=== PATIENT | female | born 1985 | race Caucasian/White ===

== ENCOUNTER 2016-08-12 09:49 | Emergency (ER) | payer OTHER ==
[2016-08-12 09:59] VITALS: TEMP 97.5
--- NOTE | 2016-08-12 11:15 | ED ---
ENT HPI - General Chief complaint: ENT Stated complaint: [place], cough Time Seen by Provider: 08/12/16 10:29 Source: patient, RN notes reviewed Mode of arrival: ambulatory Limitations: no limitations - History of Present Illness Initial comments: 30-year-old female presents emergency Department chief complaint facial pain. Patient states she's been having ongoing issues related to her wisdom teeth, impacted dentition. Patient is seen Dr. Fisher for this and which she currently is not going him ice for the last 6 days. Patient states she cannot have surgery as she had an [place] a few months ago. Patient states that she can have surgery in October. Patient also has factor V in which she is on heparin. She's had no bleeding of the gums or or region. Patient denies any melena. Patient' s states that she is has ALLERGY to codeine and states the pain is not controlled [id number] medication. Patient states recently she's developed slight cough and irritation to her throat that she has no shortness of breath she states is just a dry cough. Patient states she feels swelling in the left lower region, throat region that radiates up to her ear. She has had minimal runny nose. Patient denies headache, neck since. Patient has no chest pain or palpitations. - Related Data Home Medications Medication Instructions Recorded Confirmed Clindamycin HCl 300 mg PO Q12HR PRN 08/12/16 08/12/16 Heparin Sodium,Porcine [Heparin 5,000 unit SQ Q12H 08/12/16 08/12/16 Sodium] Previous Rx's Medication Instructions Recorded CHLORPHEN-HYDROcod 8-10mg/5ml 5 ml PO Q12HR #120 ml 08/12/16 [Tussionex] Clindamycin HCl 300 mg PO Q6HR #40 cap 08/12/16 Allergies Allergy/AdvReac Type Severity Reaction Status Date / Time Penicillins Allergy Swelling Verified 08/12/16 10:09 codeine AdvReac Vomiting Verified 08/12/16 10:09 Review of Systems ROS Statement: Those systems with pertinent positive or pertinent negative responses have been documented in the HPI. ROS Other: All systems not noted in ROS Statement are negative. Past Medical History Past Medical History: Deep Vein Thrombosis (DVT) Additional Past Medical History / Comment(s): factor V, endometriosis History of Any Multi-Drug Resistant Organisms: None Reported Past Surgical History: Cholecystectomy, Tonsillectomy, Tubal Ligation Additional Past Surgical History / Comment(s): laprascopy, eye surgery Past Anesthesia/Blood Transfusion Reactions: Postoperative Nausea & Vomiting ( PONV) Past Psychological History: No Psychological Hx Reported Smoking Status: Never smoker Past Alcohol Use History: Occasional Past Drug Use History: None Reported - Past Family History Father Family Medical History: Myocardial Infarction ([place]) Additional Family Medical History / Comment(s): father had first [place] at age 41 Mother Family Medical History: No Reported History Daughter(s) Family Medical History: Blood Disorder Additional Family Medical History / Comment(s): factor v General Exam Limitations: no limitations General appearance: alert, in no apparent distress Head exam: Present: atraumatic, normocephalic, normal inspection Eye exam: Present: normal appearance, PERRL, EOMI. Absent: scleral icterus, conjunctival injection, periorbital swelling ENT exam: Present: mucous membranes moist, TM's normal bilaterally, normal external ear exam. Absent: normal oropharynx (Erythema, swelling noted to the left lower gumline around #17,18 patient is swallowing secretions well) Neck exam: Present: normal inspection, full ROM. Absent: tenderness, meningismus, lymphadenopathy Respiratory exam: Present: normal lung sounds bilaterally. Absent: respiratory distress, wheezes, rales, rhonchi, stridor Cardiovascular Exam: Present: regular rate, normal rhythm, normal heart sounds. Absent: systolic murmur, diastolic murmur, rubs, gallop, clicks Neurological exam: Present: alert, oriented X3, CN II-XII intact Course Vital Signs 08/12/16 09:55 Temperature 97.5 F L Pulse Rate 94 Respiratory 20 Rate Blood Pressure 131/93 O2 Sat by Pulse 99 Oximetry Medical Decision Making - Medical Decision Making 30-year-old female presented for left sided dental pain, cough. Patient has slightly abscess noted on her molar in which the known about. Patient afebrile has no trismus. We discussed admission versus oral antibiotics. Patient we continued on clindamycin 4 times a day instead of 3 times a day. She'll follow- up with Dr. Fisher this week. We did discuss strict return parameters. Patient we given cough syrup at this time. Patient has URI. Disposition Clinical Impression: Dental abscess, URI (upper respiratory infection) Disposition: HOME SELF-CARE Condition: Stable Instructions: Dental Abscess (ED) Additional Instructions: Please return to the Emergency Department if symptoms worsen or any other concerns. Prescriptions: CHLORPHEN-HYDROcod 8-10mg/5ml [Tussionex] 5 ml PO Q12HR #120 ml Clindamycin HCl 300 mg PO Q6HR #40 cap Time of Disposition: 11:34
--- NOTE | 2016-08-12 11:20 | XR ---
EXAMINATION TYPE: XR mandible complete DATE OF EXAM: 08/12/2016 11:07 AM COMPARISON: NONE HISTORY: 30-year-old female left side jaw pain, unable to fully open mouth. TECHNIQUE: 5 views FINDINGS: The TMJs appear intact. The most posterior left mandibular molar is slightly impacted and shows periapical lucency, image #2. The right posterior mandibular molar is also impacted but shows no area of apical lucency. No mandibular fracture is identified. IMPRESSION: 1. Angulated and slightly impacted bilateral posterior mandibular molars. 2. Periapical lucency/abscess involving the left posterior mandibular molar. 3. TMJs appear intact. No acute osseous abnormality seen by radiographs.
--- NOTE | 2016-08-12 11:22 | XR ---
EXAMINATION TYPE: XR soft tissue neck DATE OF EXAM: 08/12/2016 11:07 AM COMPARISON: NONE HISTORY: 30-year-old female shortness of breath and cold symptoms TECHNIQUE: 2 views FINDINGS: The airway is patent. Prevertebral soft tissues are normal as is the epiglottis. Normal shouldering o f the subglottic airway. No retained radiopaque foreign body seen. There is mild hypertrophy of the p alatine tonsils. IMPRESSION: Mild palatine tonsillar hypertrophy. Otherwise, no specific abnormality of the soft tissues of the ne ck.
[2016-08-12 11:46] VITALS: BP 157/84; PULSE 75; RESP 16
== END 2016-08-12 11:46 | disposition home or self-care (01) ==
LOC: EC 09:49
DX: K04.7 Periapical abscess without sinus (principal); J06.9 Acute upper respiratory infection, unspecified; I25.2 Old myocardial infarction; Z86.718 Personal history of other venous thrombosis and embolism; Z79.899 Other long term (current) drug therapy; Z88.0 Allergy status to penicillin; Z88.5 Allergy status to narcotic agent
CPT/HCPCS: 70110; 70360; 99283

== ENCOUNTER 2016-09-15 22:39 | Emergency (ER) | payer OTHER ==
[2016-09-15 23:01] VITALS: TEMP 97.5
[2016-09-15] MEDS ORDERED: SODIUM CHLORIDE 0.9% 500 ML IV STA (23:16)
[2016-09-15 23:44] LABS: Basophils # (A) 0.1 k/uL (0-0.2); Basophils % (A) 0 %; CH 29.6; CHCM 33.2; Eosinophils # (A) 0.3 k/uL (0-0.7); Eosinophils % (A) 3 %; HDW 2.66; HGB 14.2 gm/dL (11.4-16.0); Luc # (Auto) 0.21; Luc % (Auto) 2; Lymphocytes # (A) 4.2 k/uL (1.0-4.8); Lymphocytes % (A) 38 %; MCH 29.6 pg (25.0-35.0); MCV 89.7 fL (80.0-100.0); Mean Platelet Volume 7.6; Monocytes # (A) 0.4 k/uL (0-1.0); Monocytes % (A) 4 %; Neutrophils # (A) 5.8 k/uL (1.3-7.7); Neutrophils % (A) 53 %; RDW 13.4 % (11.5-15.5); WBC 10.9 k/uL (3.8-10.6); WBC (Perox) 11.43
--- NOTE | 2016-09-15 23:46 | ED ---
Abdominal Pain HPI - General Chief Complaint: Abdominal Pain Stated Complaint: bleeding Time Seen by Provider: 09/15/16 23:03 Source: patient, RN notes reviewed Mode of arrival: ambulatory Limitations: no limitations - History of Present Illness Initial Comments: 30-year-old female presents to the emergency department with a chief complaint of abdominal. Patient states that she has had a tubal ligation. Patient states positive test. Patient states that she developed abdominal pain over the last day or so. Patient states he goes into that. Patient states she's had nausea vomiting with this. Patient admits to vaginal bleeding is well. Patient does admit to a history of factor V. Patient is a . Patient states that she was concerned due to the pain affect. Too long the vaginal bleeding that she thought that she should be evaluated. Patient denies any fever chills cough cold runny nose with this. Patient denies any recent fever, chills, shortness of breath, chest pain, back pain, numbness or tingling , dysuria or hematuria, constipation or diarrhea, headaches or visual changes, or any other current symptoms. - Related Data Home Medications Medication Instructions Recorded Confirmed Heparin Sodium,Porcine [Heparin 5,000 unit SQ Q12H 08/12/16 09/15/16 Sodium] Allergies Allergy/AdvReac Type Severity Reaction Status Date / Time Penicillins Allergy Swelling Verified 09/15/16 23:08 codeine AdvReac Vomiting Verified 09/15/16 23:08 Review of Systems ROS Statement: Those systems with pertinent positive or pertinent negative responses have been documented in the HPI. ROS Other: All systems not noted in ROS Statement are negative. Past Medical History Past Medical History: Deep Vein Thrombosis (DVT) Additional Past Medical History / Comment(s): factor V, endometriosis History of Any Multi-Drug Resistant Organisms: None Reported Past Surgical History: Cholecystectomy, Tonsillectomy, Tubal Ligation Additional Past Surgical History / Comment(s): laprascopy, eye surgery Past Anesthesia/Blood Transfusion Reactions: Postoperative Nausea & Vomiting ( PONV) Past Psychological History: No Psychological Hx Reported Smoking Status: Never smoker Past Alcohol Use History: Occasional Past Drug Use History: None Reported - Past Family History Father Family Medical History: Myocardial Infarction ([place]) Additional Family Medical History / Comment(s): father had first [place] at age 41 Mother Family Medical History: No Reported History Daughter(s) Family Medical History: Blood Disorder Additional Family Medical History / Comment(s): factor v General Exam - General Exam Comments Initial Comments: General: The patient is awake and alert, in no distress, and does not appear acutely ill. Eye: Pupils are equal, round and reactive to light, extra-ocular movements are intact; there is normal conjunctiva bilaterally. No signs of icterus. Ears, nose, mouth and throat: There are moist mucous membranes. Neck: The neck is supple, there is no tenderness. Cardiovascular: There is a regular rate and rhythm. No murmur, rub or gallop is appreciated. Respiratory: Lungs are clear to auscultation, respirations are non-labored, breath sounds are equal. No wheezes, stridor, rales, or rhonchi. Gastrointestinal: Soft, non-distended, non-tender abdomen without masses or organomegaly noted. There is no rebound or guarding present. No CVA tenderness. Bowel sounds are unremarkable. Back: There is no tenderness to palpation in the midline. There is no obvious deformity. No rashes noted. Musculoskeletal: Normal ROM, no tenderness, There is no pedal edema. There is no calf tenderness or swelling. Sensation intact. Pulses equal bilaterally 2+. Neurological: CN II-XII intact, There are no obvious motor or sensory deficits. Coordination appears grossly intact. Speech is normal. Skin: Skin is warm and dry and no rashes or lesions are noted. Psychiatric: Cooperative, appropriate mood & affect, normal judgment. Limitations: no limitations External exam: Present: normal external exam Speculum exam: Present: normal speculum exam By manual exam: Present: adnexal tenderness (Minimal right sided), uterine tenderness (Minimal). Absent: cervical motion tenderness Course Vital Signs 09/15/16 22:57 Temperature 97.5 F L Pulse Rate 58 L Respiratory 18 Rate Blood Pressure 143/93 O2 Sat by Pulse 99 Oximetry Medical Decision Making - Medical Decision Making 30-year-old female presents emergency Department chief complaint of abdominal pain. At this time patient's level is negative. Patient does appear to have a right ovarian cyst where her tenderness is. This time we discussed is mostly causing her pain. We discussed she does also appear to have abnormal chest cycle. We discussed follow-up with PATIENT APPOINTMENT COORDINATOR and return parameters. Discussed all the patient's questions. She stated that she is interested in doing in agreement with plan. All questions have been answered. She will be discharged. - Lab Data Result diagrams: 09/15/16 23:30 09/15/16 23:30 Lab Results 09/15/16 09/15/16 09/15/16 Range/Units 23:30 23:30 23:30 WBC 10.9 H (3.8-10.6) k/uL RBC 4.80 (3.80-5.40) m/uL Hgb 14.2 (11.4-16.0) gm/dL Hct 43.0 (34.0-46.0) % MCV 89.7 (80.0-100.0) fL MCH 29.6 (25.0-35.0) pg MCHC 33.0 (31.0-37.0) g/dL RDW 13.4 (11.5-15.5) % Plt Count 280 (150-450) k/uL Neutrophils % 53 % Lymphocytes % 38 % Monocytes % 4 % Eosinophils % 3 % Basophils % 0 % Neutrophils # 5.8 (1.3-7.7) k/uL Lymphocytes # 4.2 (1.0-4.8) k/uL Monocytes # 0.4 (0-1.0) k/uL Eosinophils # 0.3 (0-0.7) k/uL Basophils # 0.1 (0-0.2) k/uL PT (9.0-12.0) sec INR (<1.1) APTT (22.0-30.0) sec Sodium 141 (137-145) mmol/L Potassium 3.9 (3.5-5.1) mmol/L Chloride 108 H (98-107) mmol/L Carbon Dioxide 23 (22-30) mmol/L Anion Gap 10 mmol/L BUN 18 H (7-17) mg/dL Creatinine 0.70 (0.52-1.04) mg/dL Est GFR (MDRD) Af Amer >60 (>60 ml/min/1.73 sqM) Est GFR (MDRD) Non-Af >60 (>60 ml/min/1.73 sqM) Glucose 88 (74-99) mg/dL Calcium 9.9 (8.4-10.2) mg/dL Total Bilirubin 0.9 (0.2-1.3) mg/dL AST 30 (14-36) U/L ALT 42 (9-52) U/L Alkaline Phosphatase 82 (38-126) U/L Total Protein 7.5 (6.3-8.2) g/dL Albumin 4.3 (3.5-5.0) g/dL HCG, Quant <2.4 mIU/mL Urine Color Urine Appearance (Clear) Urine pH (5.0-8.0) Ur Specific [place] (1.001-1.035) Urine Protein (Negative) Urine Glucose (UA) (Negative) Urine Ketones (Negative) Urine Blood (Negative) Urine Nitrite (Negative) Urine Bilirubin (Negative) Urine Urobilinogen (<2.0) mg/dL Ur Leukocyte Esterase (Negative) Blood Type AB Positive Blood Type Recheck No 09/15/16 09/15/16 Range/Units 23:30 23:30 WBC (3.8-10.6) k/uL RBC (3.80-5.40) m/uL Hgb (11.4-16.0) gm/dL Hct (34.0-46.0) % MCV (80.0-100.0) fL MCH (25.0-35.0) pg MCHC (31.0-37.0) g/dL RDW (11.5-15.5) % Plt Count (150-450) k/uL Neutrophils % % Lymphocytes % % Monocytes % % Eosinophils % % Basophils % % Neutrophils # (1.3-7.7) k/uL Lymphocytes # (1.0-4.8) k/uL Monocytes # (0-1.0) k/uL Eosinophils # (0-0.7) k/uL Basophils # (0-0.2) k/uL PT 10.5 (9.0-12.0) sec INR 1.0 (<1.1) APTT 25.4 (22.0-30.0) sec Sodium (137-145) mmol/L Potassium (3.5-5.1) mmol/L Chloride (98-107) mmol/L Carbon Dioxide (22-30) mmol/L Anion Gap mmol/L BUN (7-17) mg/dL Creatinine (0.52-1.04) mg/dL Est GFR (MDRD) Af Amer (>60 ml/min/1.73 sqM) Est GFR (MDRD) Non-Af (>60 ml/min/1.73 sqM) Glucose (74-99) mg/dL Calcium (8.4-10.2) mg/dL Total Bilirubin (0.2-1.3) mg/dL AST (14-36) U/L ALT (9-52) U/L Alkaline Phosphatase (38-126) U/L Total Protein (6.3-8.2) g/dL Albumin (3.5-5.0) g/dL HCG, Quant mIU/mL Urine Color Yellow Urine Appearance Clear (Clear) Urine pH 5.5 (5.0-8.0) Ur Specific [place] 1.020 (1.001-1.035) Urine Protein Negative (Negative) Urine Glucose (UA) Negative (Negative) Urine Ketones Negative (Negative) Urine Blood Negative (Negative) Urine Nitrite Negative (Negative) Urine Bilirubin Negative (Negative) Urine Urobilinogen <2.0 (<2.0) mg/dL Ur Leukocyte Esterase Negative (Negative) Blood Type Blood Type Recheck - Radiology Data Radiology results: report reviewed, image reviewed Disposition Clinical Impression: Right ovarian cyst, Dysmenorrhea Disposition: HOME SELF-CARE Condition: Stable Instructions: Dysmenorrhea (ED) Additional Instructions: Please use medication as discussed. Please follow up with family doctor if symptoms have not improved over the next two days. Please return to the emergency room if your symptoms increase or worsen or for any other concerns. Referrals: Elliot Scott MD [Primary Care Provider] - 1-2 days Time of Disposition: 01:21
[2016-09-15 23:51] LABS: Prothrombin Time 10.5 sec (9.0-12.0)
[2016-09-15 23:52] LABS: Appearance,Urine Clear (Clear); Bilirubin,Urine Negative (Negative); Glucose,Urine (UA) Negative (Negative); Ketones,Urine Negative (Negative); Leukocyte Esterase,Urine Negative (Negative); Nitrite,Urine Negative (Negative); PH, Urine 5.5 (5.0-8.0); Partial Thromboplastin Time 25.4 sec (22.0-30.0); Protein,Urine Negative (Negative); UA Billing (MACRO vs. MICRO) CHEM; Urobilinogen,Urine <2.0 mg/dL (<2.0)
[2016-09-16 00:01] LABS: ALT 42 U/L (9-52); AST 30 U/L (14-36); Alkaline Phosphatase 82 U/L (38-126); Anion Gap 10 mmol/L; Blood Urea Nitrogen 18 mg/dL (7-17); Calcium 9.9 mg/dL (8.4-10.2); Carbon Dioxide 23 mmol/L (22-30); Chloride 108 mmol/L (98-107); Glucose 88 mg/dL (74-99); Non-African American GFR(MDRD) >60 (>60 ml/min/1.73 sqM); Potassium 3.9 mmol/L (3.5-5.1); Sodium 141 mmol/L (137-145); Total Bilirubin 0.9 mg/dL (0.2-1.3); Total Protein 7.5 g/dL (6.3-8.2)
[2016-09-16 00:17] LABS: HCG,Quantitative Serum <2.4 mIU/mL
--- NOTE | 2016-09-16 01:10 | US ---
EXAM: US Pelvis Complete, Transabdominal. US Pelvis, Transvaginal. CLINICAL HISTORY: Reason: Pain TECHNIQUE: Real-time transabdominal and transvaginal pelvic ultrasound (complete) with image documentation. Transvaginal imaging was used for better evaluation of the endometrium and adnexa. COMPARISON: None FINDINGS: Uterus: Measures 8.3 x 5.0 x 6.0 cm. Normal appearance. Endometrium measures 4 mm. No intrauterine gestational sac identified. Right ovary: Measures 3.9 x 3.2 x 2.5 cm. Normal appearance with normal color Doppler flow. Left ovary: Measures 4.0 x 2.1 x 2.7 cm. Normal appearance with normal color Doppler flow. Other: Hypoechoic, avascular 1.6 cm structure adjacent to the right ovary may represent a paraovarian cyst. No significant surrounding hyperemia. No free fluid. IMPRESSION: 1. No intrauterine identified. Uterus is unremarkable. Correlate with serial beta hCG measurements and follow-up ultrasound if clinically indicated. 2. Hypoechoic avascular 1.6 cm structure adjacent to the right ovary may represent a simple-appearing paraovarian cyst. Otherwise, normal appearance of the ovaries.
[2016-09-16 01:43] VITALS: BP 135/70; PULSE 67; RESP 16
== END 2016-09-16 01:42 | disposition home or self-care (01) ==
LOC: EC 22:39
DX: N83.201 Unspecified ovarian cyst, right side (principal); N94.6 Dysmenorrhea, unspecified; D68.4 Acquired coagulation factor deficiency; Z79.899 Other long term (current) drug therapy; Z87.42 Personal history of other diseases of the female genital tract; Z88.0 Allergy status to penicillin; Z88.5 Allergy status to narcotic agent; Z86.718 Personal history of other venous thrombosis and embolism; Z90.49 Acquired absence of other specified parts of digestive tract; Z98.51 Tubal ligation status
CPT/HCPCS: 36415; 76801; 76817; 80053; 81003; 84702; 85025; 85610; 85730; 86900; 86901; 87086; 96360; 99284

== ENCOUNTER → 2017-03-17 | Outpatient (CLI) | payer MEDICAID ==
--- NOTE | 2017-03-17 09:23 | US ---
EXAMINATION TYPE: US kidneys/renal and bladder DATE OF EXAM: 03/17/2017 COMPARISON: MR lumbar spine 2016 CLINICAL HISTORY: R10.9 Left flank pain; hematuria, prior UTI, left flank pain x 3 weeks; patient sta nadia may have extra kidney; urinary frequency EXAM MEASUREMENTS: Right Kidney: 11.8 x 8.3 x 5.2 cm Left Kidney: 10.5 x 5.9 x 5.0 cm Post Void Residual Volume: 7.4 mL Right Kidney: hyperechoic shadowing focus in lower pole = 0.4 x 0.5 x 0.4cm . No hydronephrosis. Left Kidney: No hydronephrosis or masses seen Bladder: not fully distended and therefore limited. Bilateral Jets seen: Yes Normal Post Void Residual: Yes . IMPRESSION: 4 mm nonobstructing right renal calculus.
== END | disposition home or self-care (01) ==
LOC: RADUSWWP 07:39
PROVIDERS: ATTEND Internal Medicine
DX: N20.0 Calculus of kidney (principal); Z88.0 Allergy status to penicillin; Z88.5 Allergy status to narcotic agent
CPT/HCPCS: 76770

== ENCOUNTER 2017-04-22 14:26 | Emergency (ER) | payer MEDICAID, OTHER ==
--- NOTE | 2017-04-22 16:12 | ED ---
General Adult HPI - General Chief complaint: Abdominal Pain Stated complaint: lower right abdominal pain Time Seen by Provider: 04/22/17 16:01 Source: patient, RN notes reviewed Mode of arrival: ambulatory Limitations: no limitations - History of Present Illness Initial comments: Patient is a 31-year-old female who presents emergency room today with chief complaint of right-sided abdominal pain over the last 3 days. Patient does admit to pain started in the right side of the abdomen radiating around to the back. Patient does admit that she starts Bactrim and she thought could be related to possible urinary tract infection. She states she's not had any dysuria or increased urinary frequency. Patient mitts pain increased today and was advised come here to the emergency room when she was at work for further evaluation. Patient denies any other complaints or symptoms. Patient denies any recent fever, chills, shortness of breath, chest pain, back pain, nausea or vomiting, numbness or tingling, dysuria or hematuria, constipation or diarrhea, headaches or visual changes, or any other complaints. - Related Data Home Medications Medication Instructions Recorded Confirmed Ibuprofen [Motrin] 200 - 400 mg PO Q6HR PRN 04/22/17 04/22/17 Previous Rx's Medication Instructions Recorded Ibuprofen [Motrin] 600 mg PO Q6HR PRN #40 day 04/22/17 Allergies Allergy/AdvReac Type Severity Reaction Status Date / Time Penicillins Allergy Swelling Verified 04/22/17 15:11 codeine AdvReac Vomiting Verified 04/22/17 15:11 Review of Systems ROS Statement: Those systems with pertinent positive or pertinent negative responses have been documented in the HPI. ROS Other: All systems not noted in ROS Statement are negative. Past Medical History Past Medical History: Deep Vein Thrombosis (DVT) Additional Past Medical History / Comment(s): factor V, endometriosis History of Any Multi-Drug Resistant Organisms: None Reported Past Surgical History: Cholecystectomy, Tonsillectomy, Tubal Ligation Additional Past Surgical History / Comment(s): laprascopy, eye surgery Past Anesthesia/Blood Transfusion Reactions: Postoperative Nausea & Vomiting ( PONV) Past Psychological History: No Psychological Hx Reported Smoking Status: Never smoker Past Alcohol Use History: Occasional Past Drug Use History: None Reported - Past Family History Father Family Medical History: Myocardial Infarction ([place]) Additional Family Medical History / Comment(s): father had first [place] at age 41 Mother Family Medical History: No Reported History Daughter(s) Family Medical History: Blood Disorder Additional Family Medical History / Comment(s): factor v General Exam - General Exam Comments Initial Comments: General: The patient is awake and alert, in no distress, and does not appear acutely ill. Eye: Pupils are equal, round and reactive to light, extra-ocular movements are intact. No nystagmus. There is normal conjunctiva bilaterally. No signs of icterus. Ears, nose, mouth and throat: There are moist mucous membranes and no oral lesions. Neck: The neck is supple, there is no tenderness or JVD. Cardiovascular: There is a regular rate and rhythm. No murmur, rub or gallop is appreciated. Respiratory: Lungs are clear to auscultation, respirations are non-labored, breath sounds are equal. No wheezes, stridor, rales, or rhonchi. Gastrointestinal: Normal appearance. Normal bowel sounds. Soft on palpation. Patient does have tenderness on the right side of the abdomen both in the right upper and lower quadrants. No rebound tenderness. No guarding. Musculoskeletal: Normal ROM, no tenderness. Strength 5/5. Sensation intact. Pulses equal bilaterally 2+. Neurological: A&O x 3. CN II-XII intact, There are no obvious motor or sensory deficits. Coordination appears grossly intact. Speech is normal. Skin: Skin is warm and dry and no rashes or lesions are noted. Psychiatric: Cooperative, appropriate mood & affect, normal judgment. Limitations: no limitations Course Vital Signs 04/22/17 04/22/17 04/22/17 14:58 16:29 18:09 Temperature 98.0 F Pulse Rate 90 65 67 Respiratory 20 18 18 Rate Blood Pressure 130/84 113/56 109/55 O2 Sat by Pulse 100 100 100 Oximetry Medical Decision Making - Medical Decision Making Case discussed in detail with attending physician Dr. Smith. Patient reexamined at this time shows no signs of distress resting comfortably. Patient 's CT is negative for any evidence of acute appendicitis. Shows normal appendix. Patient's labs reviewed unremarkable. Patient will be discharged home advise follow family doctor over the next 2 days. Advised return to emergency room if any symptoms increase worsen appropriate concerns. - Lab Data Result diagrams: 04/22/17 15:33 04/22/17 15:33 Lab Results 04/22/17 04/22/17 04/22/17 Range/Units 15:33 15:33 15:33 WBC 11.6 H (3.8-10.6) k/uL RBC 5.03 (3.80-5.40) m/uL Hgb 14.9 (11.4-16.0) gm/dL Hct 46.1 H (34.0-46.0) % MCV 91.6 (80.0-100.0) fL MCH 29.5 (25.0-35.0) pg MCHC 32.2 (31.0-37.0) g/dL RDW 13.5 (11.5-15.5) % Plt Count 325 (150-450) k/uL Neutrophils % 59 % Lymphocytes % 32 % Monocytes % 5 % Eosinophils % 3 % Basophils % 0 % Neutrophils # 6.8 (1.3-7.7) k/uL Lymphocytes # 3.7 (1.0-4.8) k/uL Monocytes # 0.6 (0-1.0) k/uL Eosinophils # 0.3 (0-0.7) k/uL Basophils # 0.0 (0-0.2) k/uL Sodium 142 (137-145) mmol/L Potassium 4.1 (3.5-5.1) mmol/L Chloride 103 (98-107) mmol/L Carbon Dioxide 26 (22-30) mmol/L Anion Gap 13 mmol/L BUN 19 H (7-17) mg/dL Creatinine 0.90 (0.52-1.04) mg/dL Est GFR (MDRD) Af Amer >60 (>60 ml/min/1.73 sqM) Est GFR (MDRD) Non-Af >60 (>60 ml/min/1.73 sqM) Glucose 64 L (74-99) mg/dL Plasma Lactic Acid Bimal 0.9 (0.7-2.0) mmol/L Calcium 10.2 (8.4-10.2) mg/dL Total Bilirubin 1.0 (0.2-1.3) mg/dL AST 31 (14-36) U/L ALT 49 (9-52) U/L Alkaline Phosphatase 72 (38-126) U/L Total Protein 8.2 (6.3-8.2) g/dL Albumin 4.6 (3.5-5.0) g/dL Amylase 32 (30-110) U/L Lipase 154 (23-300) U/L Urine Color Urine Appearance (Clear) Urine pH (5.0-8.0) Ur Specific [place] (1.001-1.035) Urine Protein (Negative) Urine Glucose (UA) (Negative) Urine Ketones (Negative) Urine Blood (Negative) Urine Nitrite (Negative) Urine Bilirubin (Negative) Urine Urobilinogen (<2.0) mg/dL Ur Leukocyte Esterase (Negative) Urine HCG, Qual (Not Detectd) 04/22/17 04/22/17 Range/Units 16:20 16:20 WBC (3.8-10.6) k/uL RBC (3.80-5.40) m/uL Hgb (11.4-16.0) gm/dL Hct (34.0-46.0) % MCV (80.0-100.0) fL MCH (25.0-35.0) pg MCHC (31.0-37.0) g/dL RDW (11.5-15.5) % Plt Count (150-450) k/uL Neutrophils % % Lymphocytes % % Monocytes % % Eosinophils % % Basophils % % Neutrophils # (1.3-7.7) k/uL Lymphocytes # (1.0-4.8) k/uL Monocytes # (0-1.0) k/uL Eosinophils # (0-0.7) k/uL Basophils # (0-0.2) k/uL Sodium (137-145) mmol/L Potassium (3.5-5.1) mmol/L Chloride (98-107) mmol/L Carbon Dioxide (22-30) mmol/L Anion Gap mmol/L BUN (7-17) mg/dL Creatinine (0.52-1.04) mg/dL Est GFR (MDRD) Af Amer (>60 ml/min/1.73 sqM) Est GFR (MDRD) Non-Af (>60 ml/min/1.73 sqM) Glucose (74-99) mg/dL Plasma Lactic Acid Bimal (0.7-2.0) mmol/L Calcium (8.4-10.2) mg/dL Total Bilirubin (0.2-1.3) mg/dL AST (14-36) U/L ALT (9-52) U/L Alkaline Phosphatase (38-126) U/L Total Protein (6.3-8.2) g/dL Albumin (3.5-5.0) g/dL Amylase (30-110) U/L Lipase (23-300) U/L Urine Color Yellow Urine Appearance Clear (Clear) Urine pH 6.0 (5.0-8.0) Ur Specific [place] 1.026 (1.001-1.035) Urine Protein Trace H (Negative) Urine Glucose (UA) Negative (Negative) Urine Ketones Negative (Negative) Urine Blood Negative (Negative) Urine Nitrite Negative (Negative) Urine Bilirubin Negative (Negative) Urine Urobilinogen <2.0 (<2.0) mg/dL Ur Leukocyte Esterase Negative (Negative) Urine HCG, Qual Not Detected (Not Detectd) Disposition Clinical Impression: Abdominal pain Disposition: HOME SELF-CARE Condition: Good Instructions: Abdominal Pain (ED) Additional Instructions: Please use medication as discussed. Please follow-up with family doctor in the next 2 days of symptoms have not improved. Please return to emergency room if the symptoms increase or worsen or for any other concerns. Prescriptions: Ibuprofen [Motrin] 600 mg PO Q6HR PRN #40 day PRN Reason: Pain Referrals: Dave Ireland MD [Primary Care Provider] - 1-2 days Time of Disposition: 18:30
[2017-04-22] MEDS ORDERED: ACETAMINOPHEN IV (For NPO) 1,000 MG in EMPTY BAG 1 BAG IVPB STA (16:16)
[2017-04-22 16:42] LABS: Basophils % (A) 0 %; CH 29.9; CHCM 32.8; Eosinophils # (A) 0.3 k/uL (0-0.7); Eosinophils % (A) 3 %; HCT 46.1 % (34.0-46.0); HDW 2.48; HGB 14.9 gm/dL (11.4-16.0); Luc # (Auto) 0.15; Luc % (Auto) 1; Lymphocytes # (A) 3.7 k/uL (1.0-4.8); Lymphocytes % (A) 32 %; MCH 29.5 pg (25.0-35.0); MCHC 32.2 g/dL (31.0-37.0); MCV 91.6 fL (80.0-100.0); Mean Platelet Volume 7.6; Monocytes # (A) 0.6 k/uL (0-1.0); Monocytes % (A) 5 %; Neutrophils # (A) 6.8 k/uL (1.3-7.7); Neutrophils % (A) 59 %; RBC 5.03 m/uL (3.80-5.40); RDW 13.5 % (11.5-15.5); WBC 11.6 k/uL (3.8-10.6); WBC (Perox) 11.22
[2017-04-22 16:52] LABS: ALT 49 U/L (9-52); AST 31 U/L (14-36); Alkaline Phosphatase 72 U/L (38-126); Amylase 32 U/L (30-110); Anion Gap 13 mmol/L; Blood Urea Nitrogen 19 mg/dL (7-17); Calcium 10.2 mg/dL (8.4-10.2); Carbon Dioxide 26 mmol/L (22-30); Chloride 103 mmol/L (98-107); Glucose 64 mg/dL (74-99); Non-African American GFR(MDRD) >60 (>60 ml/min/1.73 sqM); Potassium 4.1 mmol/L (3.5-5.1); Sodium 142 mmol/L (137-145); Total Protein 8.2 g/dL (6.3-8.2)
[2017-04-22 17:03] LABS: Appearance,Urine Clear (Clear); Bilirubin,Urine Negative (Negative); Glucose,Urine (UA) Negative (Negative); Ketones,Urine Negative (Negative); Leukocyte Esterase,Urine Negative (Negative); Nitrite,Urine Negative (Negative); Protein,Urine Trace (Negative); Specific Gravity,Urine 1.026 (1.001-1.035); UA Billing (MACRO vs. MICRO) CHEM; Urobilinogen,Urine <2.0 mg/dL (<2.0)
[2017-04-22] MEDS ORDERED: RX INFO: IV CONTRAST WAS GIVEN 1 EACH MISC MISCELLANE PRN (17:38)
[2017-04-22 18:10] VITALS: BP 109/55
--- NOTE | 2017-04-22 18:13 | CT ---
EXAMINATION TYPE: CT abdomen pelvis w con DATE OF EXAM: 04/22/2017 COMPARISON: NONE HISTORY: Patient complains of RUQ pain with a history of renal stones. CT DLP: 1609 mGycm Automated exposure control for dose reduction was used. TECHNIQUE: Helical acquisition of images was performed from the lung bases through the pelvis. CONTRAST: Performed without Oral Contrast and with IV Contrast, patient injected with 100 mL of Omnipaque 300. FINDINGS: Lung bases are clear. There is no pleural effusion. Heart size is normal. There is a 4 cm rounded area of low attenuation in the left lobe of the liver with peripheral nodular enhancement. This is consistent with hemangioma. The remainder of the liver appears normal. Spleen p ancreas appear normal. Bile ducts are not dilated. There are clips from cholecystectomy. There is no adrenal mass. Kidneys show satisfactory contrast opacification. There is no hydronephrosi s. There is a 5 mm calculus in the lower pole left kidney. Ureters are not dilated. There is no retro peritoneal adenopathy. There is no ascites. Bladder distends smoothly. There is no pelvic mass. Appen francisco appears normal. I see no bony destructive process. IMPRESSION: HEMANGIOMA IN THE LEFT LOBE OF THE LIVER. NONOBSTRUCTING LEFT RENAL CALCULUS. NO SIGN OF ACUTE ABDOMEN AND PELVIS. NORMAL APPENDIX.
[2017-04-22 18:43] VITALS: PULSE 78; RESP 20; TEMP 98
== END 2017-04-22 18:43 | disposition home or self-care (01) ==
LOC: EC 14:26
DX: R10.31 Right lower quadrant pain (principal); R10.11 Right upper quadrant pain; Z90.49 Acquired absence of other specified parts of digestive tract; Z98.51 Tubal ligation status; Z53.20 Procedure and treatment not carried out because of patient's decision for unspecified reasons; Z88.0 Allergy status to penicillin; Z88.5 Allergy status to narcotic agent
CPT/HCPCS: 99284; 36415; 80053; 82150; 83605; 83690; 85025; 81003; 81025; 74177; Q9967

== ENCOUNTER → 2017-06-19 | Outpatient (CLI) | payer OTHER ==
[2017-06-19 08:52] LABS: INR 1.1 (<1.2); Prothrombin Time 10.3 sec (9.0-12.0)
== END | disposition home or self-care (01) ==
LOC: LABWHC1 08:04
PROVIDERS: ATTEND Dentist Oral and Maxillofacial Surgery
DX: Z51.81 Encounter for therapeutic drug level monitoring (principal); R79.1 Abnormal coagulation profile
CPT/HCPCS: 36415; 85610

== ENCOUNTER → 2017-06-23 | Outpatient (CLI) | payer OTHER | END | disposition home or self-care (01) | LOC: LABWHC1 06:34 | PROVIDERS: ATTEND Dentist Oral and Maxillofacial Surgery | DX: D68.9 Coagulation defect, unspecified (principal) | CPT/HCPCS: 36415; 85730 ==

== ENCOUNTER 2017-07-14 08:24 | Emergency (ER) | payer OTHER ==
--- NOTE | 2017-07-14 09:30 | XR ---
EXAMINATION TYPE: XR chest 2V DATE OF EXAM: 07/14/2017 COMPARISON: 12/17/2015 HISTORY: Cough, congestion, and weakness TECHNIQUE: Frontal and lateral views of the chest are obtained. FINDINGS: There is no focal air space opacity, pleural effusion, or pneumothorax seen. The previousl y seen right basilar opacity now appears as vasculature. The cardiac silhouette size is within normal limits. The osseous structures are intact. Cholecystectomy clips are noted within the right upper quadrant. IMPRESSION: No acute cardiopulmonary process.
--- NOTE | 2017-07-14 09:43 | ED ---
URI HPI - General Chief Complaint: Upper Respiratory Infection Stated Complaint: Cold Time Seen by Provider: 07/14/17 08:51 Source: patient, RN notes reviewed Mode of arrival: ambulatory Limitations: no limitations - History of Present Illness Initial Comments: 31-year-old female presented emergency Department chief complaint of fever cough bodyaches cough congestion. Patient states symptoms started 2 days ago. Patient was seen at urgent care when the initially started was given azithromycin and prednisone. She states that they did not do any testing or x- ray and the flu swab. Patient states that does not seem to be helping. Patient states her cough is nonproductive she states that her ears are starting her from coughing. She denies any nausea vomiting diarrhea constipation. - Related Data Home Medications Medication Instructions Recorded Confirmed Ibuprofen [Motrin] 400 mg PO Q6HR PRN 04/22/17 07/14/17 Azithromycin [Zithromax Z-pack] See Taper PO DIRECTED 07/14/17 07/14/17 Previous Rx's Medication Instructions Recorded Oseltamivir [Tamiflu] 75 mg PO Q12HR #10 cap 07/14/17 Allergies Allergy/AdvReac Type Severity Reaction Status Date / Time Penicillins Allergy Swelling Verified 07/14/17 09:08 codeine AdvReac Vomiting Verified 07/14/17 09:08 Review of Systems ROS Statement: Those systems with pertinent positive or pertinent negative responses have been documented in the HPI. ROS Other: All systems not noted in ROS Statement are negative. Past Medical History Past Medical History: Deep Vein Thrombosis (DVT) Additional Past Medical History / Comment(s): factor V, endometriosis History of Any Multi-Drug Resistant Organisms: None Reported Past Surgical History: Cholecystectomy, Tonsillectomy, Tubal Ligation Additional Past Surgical History / Comment(s): laprascopy, eye surgery Past Anesthesia/Blood Transfusion Reactions: Postoperative Nausea & Vomiting ( PONV) Past Psychological History: No Psychological Hx Reported Smoking Status: Never smoker Past Alcohol Use History: Occasional Past Drug Use History: None Reported - Past Family History Father Family Medical History: Myocardial Infarction ([place]) Additional Family Medical History / Comment(s): father had first [place] at age 41 Mother Family Medical History: No Reported History Daughter(s) Family Medical History: Blood Disorder Additional Family Medical History / Comment(s): factor v General Exam Limitations: no limitations General appearance: alert, in no apparent distress Head exam: Present: atraumatic, normocephalic, normal inspection Eye exam: Present: normal appearance, PERRL, EOMI. Absent: scleral icterus, conjunctival injection, periorbital swelling ENT exam: Present: normal exam, normal oropharynx, mucous membranes moist, TM's normal bilaterally, normal external ear exam Neck exam: Present: normal inspection, full ROM. Absent: tenderness, meningismus, lymphadenopathy Respiratory exam: Present: normal lung sounds bilaterally. Absent: respiratory distress, wheezes, rales, rhonchi, stridor Cardiovascular Exam: Present: regular rate, normal rhythm, normal heart sounds. Absent: systolic murmur, diastolic murmur, rubs, gallop, clicks Skin exam: Present: warm, dry, intact, normal color. Absent: rash Course Vital Signs 07/14/17 08:41 Temperature 98.7 F Pulse Rate 89 Respiratory 18 Rate Blood Pressure 149/78 O2 Sat by Pulse 97 Oximetry Medical Decision Making - Medical Decision Making 31-year-old female presented emergency department for fever cough congestion body aches. Patient is influenza a positive. Patient chest x-ray reviewed no acute abnormality. Patient's symptoms started approximately 48 hours ago and was given Tamiflu. Disposition Clinical Impression: Influenza Disposition: HOME SELF-CARE Condition: Stable Instructions: Influenza (ED) Additional Instructions: Please return to the Emergency Department if symptoms worsen or any other concerns. Prescriptions: Oseltamivir [Tamiflu] 75 mg PO Q12HR #10 cap Referrals: Dave Ireland MD [Primary Care Provider] - 1-2 days Time of Disposition: 09:38
[2017-07-14 09:48] VITALS: BP 139/90; PULSE 67; RESP 16; TEMP 98.6
== END 2017-07-14 09:51 | disposition home or self-care (01) ==
LOC: EC 08:24
DX: J10.1 Influenza due to other identified influenza virus with other respiratory manifestations (principal); Z88.0 Allergy status to penicillin; Z88.5 Allergy status to narcotic agent
CPT/HCPCS: 71046; 87502; 99283

== ENCOUNTER → 2017-10-23 | Outpatient (CLI) | payer OTHER ==
--- NOTE | 2017-10-23 15:47 | CT ---
EXAMINATION TYPE: CT brain wo con DATE OF EXAM: 10/23/2017 COMPARISON: NONE HISTORY: Headache of unusual duration CT DLP: 1177 mGycm. Automated Exposure Control for Dose Reduction was Utilized. TECHNIQUE: CT scan of the head is performed without contrast. FINDINGS: There is no acute intracranial hemorrhage, mass effect, or midline shift identified. Ther e is a densely calcified extra-axial mass measuring approximately 0.8 x 0.6 cm along the extradural s pace of the right frontal lobe on series 3 image 37. This is highly favored to represent a meningioma . The ventricles and sulci are within normal limits in size. The globes are intact. Lenses are in pl evy. Extraocular muscles are symmetric. Scant mucosal thickening is seen within the maxillary sinuses and left sphenoid sinus as well as the left ethmoid sinus. IMPRESSION: 1. No acute intracranial hemorrhage, mass effect, or midline shift is seen. 2. Extra-axial calcified right frontal lesion measuring 0.8 x 0.6 cm favored to represent a meningiom a. 3. Very mild paranasal sinus disease.
== END | disposition home or self-care (01) ==
LOC: RADCTMAIN 15:10
PROVIDERS: ATTEND Internal Medicine
DX: G93.9 Disorder of brain, unspecified (principal); Z88.0 Allergy status to penicillin; Z88.5 Allergy status to narcotic agent
CPT/HCPCS: 70450

== ENCOUNTER 2017-11-02 15:29 | Emergency (ER) | payer OTHER ==
[2017-11-02] MEDS ORDERED: SODIUM CHLORIDE 0.9% 1,000 ML IV STA (16:03)
[2017-11-02] MEDS ORDERED: RX INFO: IV CONTRAST WAS GIVEN 1 EACH MISC MISCELLANE PRN (16:03)
[2017-11-02] MEDS ORDERED: ORPHENADRINE 30 MG/ML 2 ML VIAL IVP STA (16:10)
[2017-11-02] MEDS ORDERED: MORPHINE SULFATE 4 MG/ML SYRINGE IVP STA (16:10)
--- NOTE | 2017-11-02 16:28 | ED ---
General Adult HPI - General Chief complaint: Neuro Symptoms/Deficit Stated complaint: Dx Brain Tumor-Syncope Time Seen by Provider: 11/02/17 15:48 Source: patient, RN notes reviewed, old records reviewed Mode of arrival: wheelchair Limitations: no limitations - History of Present Illness Initial comments: 31-year-old female presents to the emergency department today chief complaint of headache and posterior neck pain. She reports that she was diagnosed with a brain tumor last week. She's been having chronic headaches for the past few months. PCP prescribed her Fioricet. Patient states that she is supposed to follow-up with her [facility] in [place] next week. Patient states that today her headache seemed to be acutely worse after taking Does complain of some double vision. She states that she had near syncopal episodes. Patient states that she has no chest pain or shortness of breath. She states she was somewhat nauseated. - Related Data Home Medications Medication Instructions Recorded Confirmed Heparin Sodium,Porcine [Heparin 5,000 unit SQ DAILY 11/02/17 11/02/17 Sodium] SUMAtriptan SUCCINATE [Imitrex] 100 mg PO DAILY PRN 11/02/17 11/02/17 Previous Rx's Medication Instructions Recorded Ondansetron Odt [Zofran Odt] 4 mg PO Q8HR PRN #12 tab 11/02/17 Allergies Allergy/AdvReac Type Severity Reaction Status Date / Time Penicillins Allergy Swelling Verified 11/02/17 15:32 codeine AdvReac Vomiting Verified 11/02/17 15:32 Review of Systems ROS Statement: Those systems with pertinent positive or pertinent negative responses have been documented in the HPI. ROS Other: All systems not noted in ROS Statement are negative. Past Medical History Past Medical History: Deep Vein Thrombosis (DVT) Additional Past Medical History / Comment(s): factor V, endometriosis, brain tumor History of Any Multi-Drug Resistant Organisms: None Reported Past Surgical History: Cholecystectomy, Tonsillectomy, Tubal Ligation Additional Past Surgical History / Comment(s): laprascopy, eye surgery Past Anesthesia/Blood Transfusion Reactions: Postoperative Nausea & Vomiting ( PONV) Past Psychological History: No Psychological Hx Reported Smoking Status: Never smoker Past Alcohol Use History: Occasional Past Drug Use History: None Reported - Past Family History Father Family Medical History: Myocardial Infarction ([place]) Additional Family Medical History / Comment(s): father had first [place] at age 41 Mother Family Medical History: No Reported History Daughter(s) Family Medical History: Blood Disorder Additional Family Medical History / Comment(s): factor v General Exam - General Exam Comments Initial Comments: Is alert and oriented 31-year-old female. No acute distress. Limitations: no limitations General appearance: alert, in no apparent distress Head exam: Present: atraumatic, normocephalic, normal inspection Eye exam: Present: normal appearance, PERRL, EOMI. Absent: scleral icterus, conjunctival injection, periorbital swelling ENT exam: Present: normal exam, mucous membranes moist Neck exam: Present: normal inspection. Absent: tenderness, meningismus, lymphadenopathy Respiratory exam: Present: normal lung sounds bilaterally. Absent: respiratory distress, wheezes, rales, rhonchi, stridor Cardiovascular Exam: Present: regular rate, normal rhythm, normal heart sounds. Absent: systolic murmur, diastolic murmur, rubs, gallop, clicks GI/Abdominal exam: Present: soft, normal bowel sounds. Absent: distended, tenderness, guarding, rebound, rigid Extremities exam: Present: normal inspection, full ROM, normal capillary refill. Absent: tenderness, pedal edema, joint swelling, calf tenderness Back exam: Present: normal inspection Neurological exam: Present: alert, oriented X3, CN II-XII intact Expanded Patient oriented to: Present: person, place, time Speech: Present: fluid speech Cranial nerves: EOM's Intact: Normal Cerebellar function: Finger to Nose: Normal Upper motor neuron: Pronator Drift: Normal Sensory exam: Upper Extremity Light Touch: Normal, Lower Extremity Light Touch: Normal Motor strength exam: RUE: 5, LUE: 5, RLE: 5, LLE: 5 Eye Response: (4) open spontaneously Motor Response: (6) obeys commands Verbal Response: (5) oriented Radha Total: 15 Psychiatric exam: Present: normal affect, normal mood Skin exam: Present: warm, dry, intact, normal color. Absent: rash Course Vital Signs 11/02/17 11/02/17 11/02/17 15:32 16:40 17:39 Temperature 98.3 F Pulse Rate 88 98 57 L Respiratory 18 18 18 Rate Blood Pressure 176/95 143/78 173/86 O2 Sat by Pulse 100 99 99 Oximetry 11/02/17 19:10 Temperature 98.4 F Pulse Rate 88 Respiratory 16 Rate Blood Pressure 152/73 O2 Sat by Pulse 100 Oximetry Medical Decision Making - Medical Decision Making 31-year-old female with history of recent diagnosis of brain tumor presents with worsening headache after taking a Fioricet. She has no neurological deficits at this time. Patient has no fever or chills. Patient was given lab work and IV was established. Fluids. She was given pain medication as needed. Significant discomfort. She started to feel nauseous afterwards. Given nausea medicine. Patient did have some relief. Patient's labwork was reviewed and are clear. Due to her pain after receiving Fioricet is concerned for the vasoconstriction. Discussed that we would do CT angiogram. CT angiogram with contrast showed no evidence of any acute or maladies. Patient reportedly results. He does admit to point with her oncologist on . I discussed that her symptoms and Patient understands are very difficult to manage with a history of brain tumor. Patient agrees. We'll discharge her with nausea medicine. Discussed appropriate follow-up. All questions answered. - Lab Data Result diagrams: 11/02/17 16:53 11/02/17 16:53 Lab Results 11/02/17 11/02/17 11/02/17 Range/Units 16:53 16:53 16:53 WBC 12.2 H (3.8-10.6) k/uL RBC 4.95 (3.80-5.40) m/uL Hgb 14.5 (11.4-16.0) gm/dL Hct 43.2 (34.0-46.0) % MCV 87.3 (80.0-100.0) fL MCH 29.4 (25.0-35.0) pg MCHC 33.6 (31.0-37.0) g/dL RDW 13.5 (11.5-15.5) % Plt Count 291 (150-450) k/uL Neutrophils % 54 % Lymphocytes % 35 % Monocytes % 4 % Eosinophils % 5 % Basophils % 1 % Neutrophils # 6.6 (1.3-7.7) k/uL Lymphocytes # 4.2 (1.0-4.8) k/uL Monocytes # 0.5 (0-1.0) k/uL Eosinophils # 0.6 (0-0.7) k/uL Basophils # 0.1 (0-0.2) k/uL PT (9.0-12.0) sec INR (<1.2) APTT (22.0-30.0) sec Sodium 143 (137-145) mmol/L Potassium 4.6 (3.5-5.1) mmol/L Chloride 106 (98-107) mmol/L Carbon Dioxide 23 (22-30) mmol/L Anion Gap 14 mmol/L BUN 16 (7-17) mg/dL Creatinine 0.74 (0.52-1.04) mg/dL Est GFR (CKD-EPI)AfAm >90 (>60 ml/min/1.73 sqM) Est GFR (CKD-EPI)NonAf >90 (>60 ml/min/1.73 sqM) Glucose 82 (74-99) mg/dL Calcium 10.0 (8.4-10.2) mg/dL Total Bilirubin 0.6 (0.2-1.3) mg/dL AST 29 (14-36) U/L ALT 43 (9-52) U/L Alkaline Phosphatase 58 (38-126) U/L Total Creatine Kinase 76 (30-135) U/L CK-MB (CK-2) 0.3 (0.0-2.4) ng/mL CK-MB (CK-2) Rel Index 0.4 Troponin I <0.012 (0.000-0.034) ng/mL Total Protein 7.5 (6.3-8.2) g/dL Albumin 4.5 (3.5-5.0) g/dL 11/02/17 Range/Units 16:53 WBC (3.8-10.6) k/uL RBC (3.80-5.40) m/uL Hgb (11.4-16.0) gm/dL Hct (34.0-46.0) % MCV (80.0-100.0) fL MCH (25.0-35.0) pg MCHC (31.0-37.0) g/dL RDW (11.5-15.5) % Plt Count (150-450) k/uL Neutrophils % % Lymphocytes % % Monocytes % % Eosinophils % % Basophils % % Neutrophils # (1.3-7.7) k/uL Lymphocytes # (1.0-4.8) k/uL Monocytes # (0-1.0) k/uL Eosinophils # (0-0.7) k/uL Basophils # (0-0.2) k/uL PT 9.9 (9.0-12.0) sec INR 1.0 (<1.2) APTT 24.3 (22.0-30.0) sec Sodium (137-145) mmol/L Potassium (3.5-5.1) mmol/L Chloride (98-107) mmol/L Carbon Dioxide (22-30) mmol/L Anion Gap mmol/L BUN (7-17) mg/dL Creatinine (0.52-1.04) mg/dL Est GFR (CKD-EPI)AfAm (>60 ml/min/1.73 sqM) Est GFR (CKD-EPI)NonAf (>60 ml/min/1.73 sqM) Glucose (74-99) mg/dL Calcium (8.4-10.2) mg/dL Total Bilirubin (0.2-1.3) mg/dL AST (14-36) U/L ALT (9-52) U/L Alkaline Phosphatase (38-126) U/L Total Creatine Kinase (30-135) U/L CK-MB (CK-2) (0.0-2.4) ng/mL CK-MB (CK-2) Rel Index Troponin I (0.000-0.034) ng/mL Total Protein (6.3-8.2) g/dL Albumin (3.5-5.0) g/dL 11/02/17 20:08 EKG performed at 1547 shows normal sinus rhythm cannot rule out anterior infarct. Abnormal EKG noted. Ventricularly of 84 bpm. Pulse 142. QRS duration 86. QT QTc is 366/432. \EKG 7 and performed at 7028 shows sinus bradycardia, otherwise normal EKG noted. Ventricular rate of 55 bpm. UT interval is 142 ms. QRS duration 100 ms. QT QTc is 416/397. - Radiology Data Radiology results: report reviewed HEENT no head and neck was completed. Negative for any acute disease. I did review patient's previous outpatient computed tomography scan. A 0.6 x 0.8 cm frontal brain tumor consistent with meningioma noted. Disposition Clinical Impression: History of brain tumor, Headache Disposition: HOME SELF-CARE Condition: Good Instructions: General Headache (ED) Additional Instructions: She is advised to follow-up with their appointment on . Return to the emergency department if any worsening signs or symptoms occur. Do not take Fioricet again this makes the migraines and headaches worse. He is the nausea medicine and diagnoses Benadryl as needed to help with your symptoms Prescriptions: Ondansetron Odt [Zofran Odt] 4 mg PO Q8HR PRN #12 tab PRN Reason: Pain Is patient prescribed a controlled substance at d/c from ED?: No If prescribed controlled substance>3 days was MAPS reviewed?: No When asked, does pt state using other controlled substances?: No Referrals: Elliot Scott MD [Primary Care Provider] - 1-2 days Time of Disposition: 19:40
[2017-11-02] MEDS ORDERED: SODIUM CHLORIDE 0.9% 1,000 ML IV SCH (16:30)
[2017-11-02 17:02] LABS: Basophils # (A) 0.1 k/uL (0-0.2); Basophils % (A) 1 %; Eosinophils # (A) 0.6 k/uL (0-0.7); Eosinophils % (A) 5 %; HCT 43.2 % (34.0-46.0); HGB 14.5 gm/dL (11.4-16.0); Lymphocytes # (A) 4.2 k/uL (1.0-4.8); Lymphocytes % (A) 35 %; MCH 29.4 pg (25.0-35.0); MCHC 33.6 g/dL (31.0-37.0); MCV 87.3 fL (80.0-100.0); Mean Platelet Volume 7.1; Monocytes # (A) 0.5 k/uL (0-1.0); Monocytes % (A) 4 %; Neutrophils # (A) 6.6 k/uL (1.3-7.7); Neutrophils % (A) 54 %; Platelet Count 291 k/uL (150-450); RBC 4.95 m/uL (3.80-5.40); RDW 13.5 % (11.5-15.5); WBC 12.2 k/uL (3.8-10.6)
[2017-11-02 17:13] LABS: ALT 43 U/L (9-52); AST 29 U/L (14-36); Albumin 4.5 g/dL (3.5-5.0); Alkaline Phosphatase 58 U/L (38-126); Anion Gap 14 mmol/L; Blood Urea Nitrogen 16 mg/dL (7-17); Carbon Dioxide 23 mmol/L (22-30); Chloride 106 mmol/L (98-107); Glucose 82 mg/dL (74-99); Potassium 4.6 mmol/L (3.5-5.1); Sodium 143 mmol/L (137-145); Total Bilirubin 0.6 mg/dL (0.2-1.3); Total Protein 7.5 g/dL (6.3-8.2)
[2017-11-02 17:17] LABS: Partial Thromboplastin Time 24.3 sec (22.0-30.0); Prothrombin Time 9.9 sec (9.0-12.0)
[2017-11-02 17:20] LABS: Creatine Kinase 76 U/L (30-135)
[2017-11-02] MEDS ORDERED: ONDANSETRON 4 MG/2 ML VIAL IVP STA (17:23)
[2017-11-02] MEDS ORDERED: diphenhydrAMINE 50 MG/ML 1 ML VIAL IVP STA (17:23)
[2017-11-02] MEDS ORDERED: FAMOTIDINE 20 MG/2 ML VIAL IV STA (17:23)
[2017-11-02 17:33] LABS: Creatine Kinase MB 0.3 ng/mL (0.0-2.4); Troponin I <0.012 ng/mL (0.000-0.034)
--- NOTE | 2017-11-02 17:56 | XR ---
EXAMINATION TYPE: XR chest 2V DATE OF EXAM: 11/02/2017 COMPARISON: 07/14/2017 HISTORY: Headache. Dizziness. TECHNIQUE: Frontal and lateral views of the chest are obtained. FINDINGS: Heart and mediastinum are normal. Lungs are clear. Diaphragm is normal. There are chest le ads. Bony thorax is intact. IMPRESSION: Normal chest. No change.
--- NOTE | 2017-11-02 18:39 | CT ---
EXAMINATION TYPE: CT angio head neck DATE OF EXAM: 11/02/2017 HISTORY: Headache since starting medication imitrex. Recent diagnosis of brain tumor COMPARISON: NONE CT DLP: 387.2 mGycm. Automated Exposure Control for Dose Reduction was Utilized. TECHNIQUE: CTA scan of the neck is performed with IV Contrast, patient injected with 65 mL of Isovue 370, axial images are obtained, coronal and sagittal reformatted images are reviewed. Three-D recons tructed images are created on an independent workstation and reviewed. FINDINGS: There is normal branching pattern of the great vessels on the aortic arch. Superior mediastinum appea rs normal. There is a 5 mm cyst in the left thyroid lobe. There is arterial flow in the common internal and external carotid arteries bilaterally. There is art erial flow in both vertebral arteries which are fairly symmetric. There is arterial flow in the vertebrobasilar artery system. There is arterial flow in the anterior m iddle and posterior cerebral arteries. There is normal contrast enhancement of the venous sinuses. Th ere is no evidence of aneurysm or neovascularity. There is no mass effect. There is no sign of spasm or stenosis. CONCLUSION: Normal CT angiogram of the neck. normal CT angiogram of the brain.
[2017-11-02 19:53] VITALS: BP 152/73; PULSE 88; RESP 16; TEMP 98.4
== END 2017-11-02 19:54 | disposition home or self-care (01) ==
LOC: EC 15:29
DX: R51 Headache (principal); M54.2 Cervicalgia; Z86.69 Personal history of other diseases of the nervous system and sense organs; Z86.718 Personal history of other venous thrombosis and embolism; Z79.01 Long term (current) use of anticoagulants; Z88.0 Allergy status to penicillin; Z88.5 Allergy status to narcotic agent; Z53.29 Procedure and treatment not carried out because of patient's decision for other reasons
CPT/HCPCS: 36415; 93005; 80053; 82550; 82553; 84484; 85025; 85610; 85730; 71046; 70496; 70498; 99285; 96374; 96375 ×3; 96361; J2270; J2360; J2405; Q9967

== ENCOUNTER → 2018-03-17 | Outpatient (CLI) | payer OTHER ==
--- NOTE | 2018-03-17 12:26 | US ---
EXAMINATION TYPE: US venous doppler duplex LE RT DATE OF EXAM: 03/17/2018 12:18 PM COMPARISON: US 04/20/2016 CLINICAL HISTORY: 32-year-old female M79.611,R22.41 SWELLING AND PAIN IN RT LOWER LIMB. Factor V clot ting disorder, history of DVT, recent travel SIDE PERFORMED: Right TECHNIQUE: The lower extremity deep venous system is examined utilizing real time linear array sonog kimberlee with graded compression, doppler sonography and color-flow sonography. FINDINGS: VESSELS IMAGED: External Iliac Vein (EIV) Common Femoral Vein Deep Femoral Vein Greater Saphenous Vein * Femoral Vein Popliteal Vein Small Saphenous Vein * Proximal Calf Veins (* superficial vessels) Right Leg: Negative for DVT IMPRESSION: No evidence for DVT within the right lower extremity imaged from the groin to the upper calf.
== END | disposition home or self-care (01) ==
LOC: RADUSWWP 11:34
PROVIDERS: ATTEND Internal Medicine
DX: M79.661 Pain in right lower leg (principal); R22.41 Localized swelling, mass and lump, right lower limb; Z88.0 Allergy status to penicillin; Z91.048 Other nonmedicinal substance allergy status; Z88.5 Allergy status to narcotic agent; Z88.8 Allergy status to other drugs, medicaments and biological substances

== ENCOUNTER → 2018-05-21 | Outpatient (CLI) | payer OTHER ==
--- NOTE | 2018-05-23 23:53 | MR ---
EXAMINATION TYPE: MR lspine/sacrum wo/w con DATE OF EXAM: 05/21/2018 COMPARISON: 01/04/2016 lumbar spine HISTORY: Back pain TECHNIQUE: Multiplanar, multisequence images of the lumbar spine is performed without and with IV contrast, util izing a 1.5 mL intravenous FINDINGS: Lumbar vertebra have normal alignment. Disc spaces are fairly normal. There is no compressi on fracture. I see no focal bone destruction. Posterior elements are intact. There is no spinal steno sis. The lumbar neural foramina appear widely patent. The sacroiliac joints appear normal. The uterus is retroverted. Sacral segments have normal alignment . There is no evidence of sacral spinal stenosis. The presacral soft tissues are unremarkable. There is no pathologic fluid collection. Coccyx appears intact. Contrast images show no pathologic enhancement. IMPRESSION: Negative MR scan of the lumbar spine and sacrum. No fracture. No spinal stenosis. Lumbar spine not significantly different than old exam.
== END | disposition home or self-care (01) ==
LOC: RADMRIMAIN 14:32
PROVIDERS: ATTEND Chiropractor
DX: M99.03 Segmental and somatic dysfunction of lumbar region (principal)
CPT/HCPCS: 72158; 72197; A9585

== ENCOUNTER → 2018-05-24 | Outpatient (CLI) | payer OTHER ==
--- NOTE | 2018-05-24 15:27 | CT ---
CT angiogram abdomen HISTORY: Hypertension Correlation prior CT abdomen pelvis 04/22/2017. Helical acquisition obtained pre- and postadministration of 100 cc Isovue-370 IV. Dose reduction achi eved with automated exposure control. DLP 1457.2 mGycentimeters The aorta shows normal caliber in its visualized portions, no dissection or aneurysm. Renal arteries also show an unremarkable appearance, single renal arteries are present bilaterally. Inferior mesente neema artery, superior mesenteric artery, celiac axis are patent. Lung bases are clear, no pleural or pericardial effusion. Low dense focus measuring approximately 3.9 cm in the lateral segment of the left lobe show some suggestion of peripheral nodular enhancement as on prior CT suggestive of hemangioma. No retroperitoneal adenopathy, ascites, or pneumoperitoneum. Patient is post cholecystectomy. Spleen is within normal limits. Adrenal glands are normal. Punctate ossifications are present to within the right kidney and a single within the lower pole of t he left kidney which are nonobstructive. Pancreas is normal. Bowel unremarkable as visualized. Uterus and visualized portions of the ovaries are normal. Bones are unremarkable as seen. IMPRESSION: No evident aneurysm. Probable hemangioma right lobe of liver. Nonobstructive bilateral ne phrolithiasis. Additional findings above.
== END | disposition home or self-care (01) ==
LOC: RADCTMAIN 12:58
PROVIDERS: ATTEND Internal Medicine Cardiovascular Disease
DX: N20.0 Calculus of kidney (principal); I10 Essential (primary) hypertension; Z90.49 Acquired absence of other specified parts of digestive tract
CPT/HCPCS: 74175; Q9967

== ENCOUNTER → 2018-12-17 | Outpatient (CLI) | payer OTHER | END | disposition home or self-care (01) | LOC: LABWHC1 08:01 | PROVIDERS: ATTEND Dentist Oral and Maxillofacial Surgery | DX: R79.1 Abnormal coagulation profile (principal) | CPT/HCPCS: 36415; 85730 ==

== ENCOUNTER 2019-11-05 02:28 | Inpatient (IN) | payer OTHER ==
[2019-11-05] MEDS ORDERED: SODIUM CHLORIDE 0.9% 1,000 ML IV STA (02:46)
[2019-11-05] MEDS ORDERED: HYDROmorphone 1 MG/ML 1 ML SYRINGE IVP STA ×2 (02:46→04:14)
[2019-11-05] MEDS ORDERED: ONDANSETRON 4 MG/2 ML VIAL IVP STA (02:46)
--- NOTE | 2019-11-05 03:02 | ED ---
General Adult HPI - General Chief complaint: Abdominal Pain Stated complaint: Vomiting Time Seen by Provider: 11/05/19 02:39 Source: patient, RN notes reviewed, old records reviewed Mode of arrival: ambulatory Limitations: no limitations - History of Present Illness Initial comments: 33 -year-old female presenting for left-sided abdominal pain and flank pain. Pain began one hour ago. Described as severe sudden onset pain. She had 2 episodes of vomiting prior to arrival. She has recent history of gastric bypass, [id number]-[id number] approximately 2 weeks ago. She had called to [facility] and it was recommended that she present to the emergency department for evaluation. She denies preceding fever. She states she has been doing quite well after her initial operation. She states she has not had a bowel movement in 3 days. No diarrhea. She has been passing gas. - Related Data Previous Rx's Medication Instructions Recorded Metoprolol Succinate (ER) [Toprol 25 mg PO DAILY #30 tab 04/28/18 Xl] Allergies Allergy/AdvReac Type Severity Reaction Status Date / Time Penicillins Allergy Swelling Verified 11/05/19 02:37 codeine AdvReac Vomiting Verified 11/05/19 02:37 morphine AdvReac Nausea Verified 11/05/19 02:37 sumatriptan [From Imitrex] AdvReac Nausea Verified 11/05/19 02:37 Review of Systems ROS Statement: Those systems with pertinent positive or pertinent negative responses have been documented in the HPI. ROS Other: All systems not noted in ROS Statement are negative. Past Medical History Past Medical History: Deep Vein Thrombosis (DVT) Additional Past Medical History / Comment(s): c/o being liteheaded pain in delmy shoulders, feels like heart flutters and ringing in ears just with normal activity. factor V, endometriosis, brain tumor non malignant History of Any Multi-Drug Resistant Organisms: None Reported Past Surgical History: Bariatric Surgery, Cholecystectomy, Tonsillectomy, Tubal Ligation Additional Past Surgical History / Comment(s): laprascopy, eye surgery Past Anesthesia/Blood Transfusion Reactions: Postoperative Nausea & Vomiting (PONV) Additional Past Anesthesia/Blood Transfusion Reaction / Comment(s): clausterphobia Past Psychological History: No Psychological Hx Reported Smoking Status: Never smoker Past Alcohol Use History: None Reported Past Drug Use History: None Reported - Past Family History Father Family Medical History: Myocardial Infarction ([place]) Additional Family Medical History / Comment(s): father had first [place] at age 41 had total of 3 mi's Mother Family Medical History: No Reported History Additional Family Medical History / Comment(s): grandfather-mi Daughter(s) Family Medical History: Blood Disorder Additional Family Medical History / Comment(s): factor v General Exam Limitations: no limitations General appearance: alert, in no apparent distress Head exam: Present: atraumatic, normocephalic Eye exam: Present: normal appearance, PERRL ENT exam: Present: normal exam Neck exam: Present: normal inspection. Absent: tenderness, meningismus Respiratory exam: Present: normal lung sounds bilaterally. Absent: respiratory distress, wheezes Cardiovascular Exam: Present: regular rate, normal rhythm GI/Abdominal exam: Present: soft, distended, tenderness. Absent: guarding, rebound, rigid Extremities exam: Present: normal inspection, normal capillary refill. Absent: pedal edema Back exam: Present: normal inspection, CVA tenderness (L) Neurological exam: Present: alert, oriented X3, CN II-XII intact. Absent: motor sensory deficit Psychiatric exam: Present: anxious Skin exam: Present: warm, dry, intact. Absent: cyanosis, diaphoretic Course Vital Signs 11/05/19 11/05/19 02:32 04:20 Temperature 98.1 F Pulse Rate 55 L 55 L Respiratory 18 18 Rate Blood Pressure 131/56 122/69 O2 Sat by Pulse 100 98 Oximetry Medical Decision Making - Medical Decision Making 33-year-old female with history concerning for renal colic, workup in the emergency department reveals mild leukocytosis, 13, stable hemoglobin, normal electrolytes. Urinalysis showing RBCs. X-rays performed, negative for obstructing stone, no intraperitoneal free air. Patient has CT showing a 5 mm obstructing stone with left-sided hydronephrosis. She has significant pain req uiring multiple doses of IV analgesics in the emergency department. Her pain is persistent. She will be admitted to urology for further evaluation. Case is discussed with Dr. Ellison who will accept admission. - Lab Data Result diagrams: 11/05/19 02:53 11/05/19 02:53 Lab Results 11/05/19 11/05/19 11/05/19 Range/Units 02:53 02:53 02:53 WBC 13.0 H (3.8-10.6) k/uL RBC 4.66 (3.80-5.40) m/uL Hgb 14.1 (11.4-16.0) gm/dL Hct 42.1 (34.0-46.0) % MCV 90.3 (80.0-100.0) fL MCH 30.2 (25.0-35.0) pg MCHC 33.4 (31.0-37.0) g/dL RDW 13.7 (11.5-15.5) % Plt Count 336 (150-450) k/uL Neutrophils % 50 % Lymphocytes % 41 % Monocytes % 4 % Eosinophils % 3 % Basophils % 1 % Neutrophils # 6.5 (1.3-7.7) k/uL Lymphocytes # 5.3 H (1.0-4.8) k/uL Monocytes # 0.5 (0-1.0) k/uL Eosinophils # 0.4 (0-0.7) k/uL Basophils # 0.1 (0-0.2) k/uL Manual Slide Review Performed PT 10.7 (9.0-12.0) sec INR 1.0 (<1.2) APTT 23.2 (22.0-30.0) sec Sodium 139 (137-145) mmol/L Potassium 3.7 (3.5-5.1) mmol/L Chloride 106 (98-107) mmol/L Carbon Dioxide 22 (22-30) mmol/L Anion Gap 11 mmol/L BUN 18 H (7-17) mg/dL Creatinine 0.75 (0.52-1.04) mg/dL Est GFR (CKD-EPI)AfAm >90 (>60 ml/min/1.73 sqM) Est GFR (CKD-EPI)NonAf >90 (>60 ml/min/1.73 sqM) Glucose 121 H (74-99) mg/dL Plasma Lactic Acid Bimal (0.7-2.0) mmol/L Calcium 10.1 (8.4-10.2) mg/dL Total Bilirubin 0.8 (0.2-1.3) mg/dL AST 33 (14-36) U/L ALT 48 H (4-34) U/L Alkaline Phosphatase 75 (38-126) U/L Total Protein 7.2 (6.3-8.2) g/dL Albumin 4.4 (3.5-5.0) g/dL Amylase 67 (30-110) U/L Lipase 1831 H (23-300) U/L Urine Color Urine Appearance (Clear) Urine pH (5.0-8.0) Ur Specific [place] (1.001-1.035) Urine Protein (Negative) Urine Glucose (UA) (Negative) Urine Ketones (Negative) Urine Blood (Negative) Urine Nitrite (Negative) Urine Bilirubin (Negative) Urine Urobilinogen (<2.0) mg/dL Ur Leukocyte Esterase (Negative) Urine RBC (0-5) /hpf Urine WBC (0-5) /hpf Ur Squamous Epith Cells (0-4) /hpf Urine Mucus (None) /hpf 11/05/19 11/05/19 Range/Units 02:53 03:27 WBC (3.8-10.6) k/uL RBC (3.80-5.40) m/uL Hgb (11.4-16.0) gm/dL Hct (34.0-46.0) % MCV (80.0-100.0) fL MCH (25.0-35.0) pg MCHC (31.0-37.0) g/dL RDW (11.5-15.5) % Plt Count (150-450) k/uL Neutrophils % % Lymphocytes % % Monocytes % % Eosinophils % % Basophils % % Neutrophils # (1.3-7.7) k/uL Lymphocytes # (1.0-4.8) k/uL Monocytes # (0-1.0) k/uL Eosinophils # (0-0.7) k/uL Basophils # (0-0.2) k/uL Manual Slide Review PT (9.0-12.0) sec INR (<1.2) APTT (22.0-30.0) sec Sodium (137-145) mmol/L Potassium (3.5-5.1) mmol/L Chloride (98-107) mmol/L Carbon Dioxide (22-30) mmol/L Anion Gap mmol/L BUN (7-17) mg/dL Creatinine (0.52-1.04) mg/dL Est GFR (CKD-EPI)AfAm (>60 ml/min/1.73 sqM) Est GFR (CKD-EPI)NonAf (>60 ml/min/1.73 sqM) Glucose (74-99) mg/dL Plasma Lactic Acid Bimal 1.6 (0.7-2.0) mmol/L Calcium (8.4-10.2) mg/dL Total Bilirubin (0.2-1.3) mg/dL AST (14-36) U/L ALT (4-34) U/L Alkaline Phosphatase (38-126) U/L Total Protein (6.3-8.2) g/dL Albumin (3.5-5.0) g/dL Amylase (30-110) U/L Lipase (23-300) U/L Urine Color Yellow Urine Appearance Clear (Clear) Urine pH 5.5 (5.0-8.0) Ur Specific [place] 1.030 (1.001-1.035) Urine Protein 1+ H (Negative) Urine Glucose (UA) Negative (Negative) Urine Ketones 2+ H (Negative) Urine Blood Moderate H (Negative) Urine Nitrite Negative (Negative) Urine Bilirubin Negative (Negative) Urine Urobilinogen <2.0 (<2.0) mg/dL Ur Leukocyte Esterase Negative (Negative) Urine RBC 52 H (0-5) /hpf Urine WBC 1 (0-5) /hpf Ur Squamous Epith Cells 3 (0-4) /hpf Urine Mucus Moderate H (None) /hpf Disposition Clinical Impression: Calculus of kidney, Hydronephrosis Disposition: ADMITTED IP TO THIS [facility] Condition: Stable Is patient prescribed a controlled substance at d/c from ED?: No Referrals: Dave Ireland MD [Primary Care Provider] - 1-2 days Decision to Admit Reason: Admit from EC Decision Date: 11/05/19 Decision Time: 05:09
[2019-11-05 03:10] LABS: Basophils # (A) 0.1 k/uL (0-0.2); Basophils % (A) 1 %; Eosinophils # (A) 0.4 k/uL (0-0.7); Eosinophils % (A) 3 %; HCT 42.1 % (34.0-46.0); HGB 14.1 gm/dL (11.4-16.0); Lymphocytes # (A) 5.3 k/uL (1.0-4.8); Lymphocytes % (A) 41 %; MCH 30.2 pg (25.0-35.0); MCHC 33.4 g/dL (31.0-37.0); MCV 90.3 fL (80.0-100.0); Mean Platelet Volume 8.9; Monocytes # (A) 0.5 k/uL (0-1.0); Monocytes % (A) 4 %; Neutrophils # (A) 6.5 k/uL (1.3-7.7); Neutrophils % (A) 50 %; Platelet Count 336 k/uL (150-450); RBC 4.66 m/uL (3.80-5.40); RDW 13.7 % (11.5-15.5)
[2019-11-05 03:15] LABS: ALT 48 U/L (4-34); AST 33 U/L (14-36); African American GFR (CKD) >90 (>60 ml/min/1.73 sqM); Albumin 4.4 g/dL (3.5-5.0); Alkaline Phosphatase 75 U/L (38-126); Amylase 67 U/L (30-110); Anion Gap 11 mmol/L; Blood Urea Nitrogen 18 mg/dL (7-17); Calcium 10.1 mg/dL (8.4-10.2); Carbon Dioxide 22 mmol/L (22-30); Chloride 106 mmol/L (98-107); Glucose 121 mg/dL (74-99); Non-African American GFR(CKD) >90 (>60 ml/min/1.73 sqM); Potassium 3.7 mmol/L (3.5-5.1); Sodium 139 mmol/L (137-145); Total Bilirubin 0.8 mg/dL (0.2-1.3); Total Protein 7.2 g/dL (6.3-8.2)
[2019-11-05 03:28] LABS: Partial Thromboplastin Time 23.2 sec (22.0-30.0); Prothrombin Time 10.7 sec (9.0-12.0)
--- NOTE | 2019-11-05 03:37 | CT ---
EXAMINATION TYPE: CT abdomen pelvis wo con DATE OF EXAM: 11/05/2019 COMPARISON: 04/22/2017 HISTORY: abdominal pain with recent bariatric surgery CT DLP: 1196.4 mGycm Automated exposure control for dose reduction was used. Images were obtained from the diaphragm to the floor the pelvis without IV contrast. There is small a mount of contrast in the stomach. Lung bases are clear. There is no pleural effusion. Heart size is normal. There is no pericardial eff usion. There are surgical clips from gastric bariatric surgery. There is small amount of oral contras t apparently in the stomach. I see no contrast extravasation. The liver and spleen appear normal. Daniel e ducts are not dilated. There are clips from cholecystectomy. There is no evidence of pancreatic mas s. There is no adrenal mass. Kidneys have normal size. There is left-sided hydronephrosis with 5 mm obstructing calculus in the pr oximal left ureter near the ureteral pelvic junction. There are calculi in the right kidney to measur e up to 4 mm. There is no retroperitoneal adenopathy. Ureters are not dilated. Appendix is posterior and appears normal. Bladder distends smoothly. There is probably a 3.8 cm cyst on the right ovary. There is small amount of free fluid in the pelvis. Uterus appears normal. Lumbar spine is intact. Bony pelvis is intact. There is no mesenteric edema. There is no ascites or free air. There is no sign of a bowel obstructio n. Lumbar spine is intact. Bony pelvis is intact. IMPRESSION: Obstructing calculus close to the left ureteropelvic Junction with left-sided hydronephrosis. Nonobst ructing right renal calculi. Renal obstruction is new compared to old exam. Calculi increased in size compared to old exam. Small amount of fluid in the pelvis of uncertain significance.
[2019-11-05 03:40] LABS: Appearance,Urine Clear (Clear); Bilirubin,Urine Negative (Negative); Blood,Urine Moderate (Negative); Color,Urine Yellow; Glucose,Urine (UA) Negative (Negative); Ketones,Urine 2+ (Negative); Leukocyte Esterase,Urine Negative (Negative); Mucus,Urine Moderate /hpf; Nitrite,Urine Negative (Negative); PH, Urine 5.5 (5.0-8.0); Protein,Urine 1+ (Negative); RBC,Urine 52 /hpf (0-5); Squamous Epithelial Cell,Urine 3 /hpf (0-4); Urobilinogen,Urine <2.0 mg/dL (<2.0); WBC,Urine 1 /hpf (0-5)
[2019-11-05] MEDS ORDERED: KETOROLAC 30 MG/ML 1 ML VIAL IVP STA (03:58)
[2019-11-05] MEDS ORDERED: FAMOTIDINE 20 MG/2 ML VIAL IV STA (04:11)
--- NOTE | 2019-11-05 04:48 | XR ---
EXAMINATION TYPE: XR KUB DATE OF EXAM: 11/05/2019 COMPARISON: NONE HISTORY: Kidney stone. Pain. TECHNIQUE: 3 views supine FINDINGS: There are clips from cholecystectomy. There are multiple surgical clips over the stomach an d in the left mid abdomen. I see no definite calcifications over the kidneys. There is some dilute co ntrast in the jejunum. Lung bases appear clear. There is no sign of intestinal obstruction or pneumop eritoneum. There is phlebolith in the pelvis on the left side. IMPRESSION: Nonacute abdomen. No calculus demonstrated.. Calculus obstructing the left kidney on the CT scan today is not demonstrated by this exam.
[2019-11-05] MEDS ORDERED: HYDROmorphone 0.5 MG/0.5 ML SYRINGE IVP PRN (05:06)
[2019-11-05] MEDS ORDERED: NALOXONE 0.4 MG/ML 1 ML VIAL IV PRN (05:06)
[2019-11-05] MEDS ORDERED: IBUPROFEN 400 MG TAB PO PRN (05:06)
[2019-11-05] MEDS ORDERED: ONDANSETRON 4 MG/2 ML VIAL IVP PRN (05:06)
[2019-11-05] MEDS: SODIUM CHLORIDE 0.9% 1,000 ML IV SCH ×2 (07:20→20:08)
[2019-11-05] MEDS: HYDROmorphone 1 MG/ML 1 ML SYRINGE IVP PRN ×2 (10:38→18:07)
--- NOTE | 2019-11-05 14:31 | P.GSHP ---
History of Present Illness H&P Date: 11/05/19 Chief Complaint: ureteral stone 33 -year-old female presented to the hospital with left-sided abdominal pain and flank pain. Her pain associated with nausea and vomiting. Denies any dysuria, fever/chills or gross hematuria Of note She has recent history of gastric bypass, Shaylee-en-Y approximately 2 weeks ago. He underwent CT abd/pelvis which showed 4 mm left proximal ureteral stone with hydronephrosis. Since admission her pain has slightly improved - Constitutional Constitutional: Denies chills, Denies fever - Cardiovascular Cardiovascular: Denies chest pain, Denies shortness of breath - Respiratory Respiratory: Denies cough, Denies 7 - Gastrointestinal Gastrointestinal: Reports abdominal pain, Reports nausea, Reports vomiting - Genitourinary (Female) Genitourinary: Reports flank pain, Reports kidney stones, Denies dysuria - Musculoskeletal Musculoskeletal: Denies myalgias - Integumentary Integumentary: Denies pruritus, Denies rash - Neurological Neurological: Denies numbness, Denies weakness Past Medical History Past Medical History: Deep Vein Thrombosis (DVT) Additional Past Medical History / Comment(s): c/o being liteheaded pain in delmy shoulders, feels like heart flutters and ringing in ears just with normal activity. factor V, endometriosis, brain tumor non malignant, DVT 2002 and 2006. History of Any Multi-Drug Resistant Organisms: None Reported Past Surgical History: Bariatric Surgery, Cholecystectomy, Tonsillectomy, Tubal Ligation Additional Past Surgical History / Comment(s): laprascopy, eye surgery, gastric bypass- October 2019. Past Anesthesia/Blood Transfusion Reactions: Postoperative Nausea & Vomiting (PONV) Additional Past Anesthesia/Blood Transfusion Reaction / Comment(s): clausterphobia Past Psychological History: No Psychological Hx Reported Additional Psychological History / Comment(s): lives with guillaume and 3 kids. 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 Smoking Status: Never smoker Past Alcohol Use History: None Reported Past Drug Use History: None Reported - Past Family History Father Family Medical History: Myocardial Infarction (SC) Additional Family Medical History / Comment(s): father had first SC at age 41 had total of 3 mi's Mother Family Medical History: No Reported History Additional Family Medical History / Comment(s): grandfather-mi Daughter(s) Family Medical History: Blood Disorder Additional Family Medical History / Comment(s): factor v Medications and Allergies Home Medications Medication Instructions Recorded Confirmed Type Metoprolol Succinate (ER) [Toprol 25 mg PO DAILY #30 tab 04/28/18 11/05/19 Rx Xl] Ascorbic Acid [Vitamin C] 1,000 mg PO DAILY 11/05/19 11/05/19 History Cholecalciferol [Vitamin D3 (25 1,000 unit PO DAILY 11/05/19 11/05/19 History Mcg = 1000 Iu)] Ferrous Sulfate [Feosol] 325 mg PO DAILY 11/05/19 11/05/19 History Lisinopril 20 mg PO DAILY 11/05/19 11/05/19 History Multivitamins, Thera [Multivitamin 1 tab PO DAILY 11/05/19 11/05/19 History (formulary)] Omeprazole 20 mg PO DAILY 11/05/19 11/05/19 History Allergies Allergy/AdvReac Type Severity Reaction Status Date / Time Penicillins Allergy Swelling Verified 11/05/19 08:15 codeine AdvReac Vomiting Verified 11/05/19 08:15 morphine AdvReac Nausea Verified 11/05/19 08:15 sumatriptan [From Imitrex] AdvReac Nausea Verified 11/05/19 08:15 Surgical - Exam Vital Signs Temp Pulse Resp BP Pulse Ox 98.1 F 55 L 18 131/56 100 11/05/19 02:32 11/05/19 02:32 11/05/19 02:32 11/05/19 02:32 11/05/19 02:32 - General no distress, moderate pain - Eyes PERRL, normal ocular movement - Respiratory normal expansion, normal respiratory effort - Abdomen Abdomen: soft, no rigid - Psychiatric oriented to time, oriented to person, oriented to place Results - Labs 11/05/19 02:53 11/05/19 02:53 Abnormal Lab Results - Last 24 Hours (Table) 11/05/19 11/05/19 11/05/19 Range/Units 02:53 02:53 03:27 WBC 13.0 H (3.8-10.6) k/uL Lymphocytes # 5.3 H (1.0-4.8) k/uL BUN 18 H (7-17) mg/dL Glucose 121 H (74-99) mg/dL ALT 48 H (4-34) U/L Lipase 1831 H (23-300) U/L Urine Protein 1+ H (Negative) Urine Ketones 2+ H (Negative) Urine Blood Moderate H (Negative) Urine RBC 52 H (0-5) /hpf Urine Mucus Moderate H (None) /hpf Diabetes panel 11/05/19 Range/Units 02:53 Sodium 139 (137-145) mmol/L Potassium 3.7 (3.5-5.1) mmol/L Chloride 106 (98-107) mmol/L Carbon Dioxide 22 (22-30) mmol/L BUN 18 H (7-17) mg/dL Creatinine 0.75 (0.52-1.04) mg/dL Glucose 121 H (74-99) mg/dL Calcium 10.1 (8.4-10.2) mg/dL AST 33 (14-36) U/L ALT 48 H (4-34) U/L Alkaline Phosphatase 75 (38-126) U/L Total Protein 7.2 (6.3-8.2) g/dL Albumin 4.4 (3.5-5.0) g/dL Calcium panel 11/05/19 Range/Units 02:53 Calcium 10.1 (8.4-10.2) mg/dL Albumin 4.4 (3.5-5.0) g/dL Pituitary panel 11/05/19 Range/Units 02:53 Sodium 139 (137-145) mmol/L Potassium 3.7 (3.5-5.1) mmol/L Chloride 106 (98-107) mmol/L Carbon Dioxide 22 (22-30) mmol/L BUN 18 H (7-17) mg/dL Creatinine 0.75 (0.52-1.04) mg/dL Glucose 121 H (74-99) mg/dL Calcium 10.1 (8.4-10.2) mg/dL Adrenal panel 11/05/19 Range/Units 02:53 Sodium 139 (137-145) mmol/L Potassium 3.7 (3.5-5.1) mmol/L Chloride 106 (98-107) mmol/L Carbon Dioxide 22 (22-30) mmol/L BUN 18 H (7-17) mg/dL Creatinine 0.75 (0.52-1.04) mg/dL Glucose 121 H (74-99) mg/dL Calcium 10.1 (8.4-10.2) mg/dL Total Bilirubin 0.8 (0.2-1.3) mg/dL AST 33 (14-36) U/L ALT 48 H (4-34) U/L Alkaline Phosphatase 75 (38-126) U/L Total Protein 7.2 (6.3-8.2) g/dL Albumin 4.4 (3.5-5.0) g/dL - Imaging CT scan - abdomen: other (4mm left sided ureteral stone with mild hydro) Assessment and Plan Assessment: 33 yo female with 4mm left proximal stone with mild hydro. I discussed with her option of medical expulsive therapy vs surigcal intervention. She would like a trial of Medical expulsive therapy at this time Plan: -can have a diet -NPO past MN, if pain is controlled will discharge home tomorrow, if still having pain will plan on proceeding with left sided ureteroscopy
[2019-11-05] MEDS ORDERED: LEVOFLOXACIN 500MG-D5W PMX 500 MG in DEXTROSE/WATER 1 100ML.BAG IVPB SCH (18:00)
[2019-11-06] MEDS: HYDROmorphone 1 MG/ML 1 ML SYRINGE IVP PRN ×3 (00:50→07:51)
[2019-11-06] MEDS ORDERED: PANTOPRAZOLE 40 MG TABLET PO SCH (07:30)
[2019-11-06] MEDS ORDERED: ASCORBIC ACID 500 MG TAB PO SCH (09:00)
[2019-11-06] MEDS ORDERED: LISINOPRIL 20 MG TAB PO SCH (09:00)
[2019-11-06] MEDS ORDERED: FERROUS SULFATE 325 MG TAB PO SCH (09:00)
[2019-11-06] MEDS ORDERED: MULTIVITAMINS, THERA 1 EACH TAB PO SCH (09:00)
[2019-11-06] MEDS ORDERED: CHOLECALCIFEROL 1,000 UNIT TAB PO SCH (09:00)
[2019-11-06] MEDS ORDERED: METOPROLOL SUCCINATE (ER) 25 MG TAB.ER.24H PO SCH (09:00)
[2019-11-06] MEDS: LACTATED RINGERS 1,000 ML IV ONE ×2 (09:00→14:33)
--- NOTE | 2019-11-06 09:05 | P.PN ---
Subjective Progress Note Date: 11/06/19 Still having pain on left side, denies any fever/chills Objective - Vital Signs Vital signs: Vital Signs Temp 97.5 F L 11/06/19 07:00 Pulse 57 L 11/06/19 07:00 Resp 17 11/06/19 07:00 BP 106/57 11/06/19 07:00 Pulse Ox 99 11/06/19 07:00 Intake & Output 11/05/19 11/06/19 11/06/19 18:59 06:59 18:59 Intake Total 1350 Output Total 500 Balance 850 Intake: Intake, IV Titration 1200 Amount Sodium Chloride 0.9% 1, 1200 000 ml @ 75 mls/hr IV . [id number] JOHN Rx#:[id number] Oral 150 Output: Urine 500 Other: Voiding Method Toilet Toilet # Voids 2 1 - Gastrointestinal General gastrointestinal: Present: soft. Absent: distended - Psychiatric Psychiatric: Present: A&O x's 3, appropriate affect, intact judgment & insight - Labs CBC & Chem 7: 11/05/19 02:53 11/05/19 02:53 Assessment and Plan Assessment: 33 yo female with 4mm left proximal stone with mild hydro. I discussed with her option of medical expulsive therapy vs surigcal intervention. Still having pain this am Plan: -OR for left sided ureteroscopy, holmium laser lithotripsy and stent placement -Discharge home after surgery
[2019-11-06] MEDS ORDERED: ONDANSETRON 4 MG/2 ML VIAL IVP ONE (09:14)
[2019-11-06] MEDS ORDERED: SCOPOLAMINE 1.5MG/72HR PATCH TRANSDERM ONE (09:14)
[2019-11-06] MEDS ORDERED: DEXAMETHASONE SOD PHOSPHATE 4 MG/ML 1 ML VIAL IVP ONE (09:14)
[2019-11-06] MEDS ORDERED: GENTAMICIN 160 MG in SODIUM CHLORIDE 0.9% 100 ML IVPB ONE (09:15)
[2019-11-06] MEDS ORDERED: fentaNYL (PF) 50 MCG/ML 2 ML AMP ONE (09:36)
[2019-11-06] MEDS ORDERED: LIDOCAINE 1% INJ 10MG/ML (20 ML MDV) ONE (09:36)
[2019-11-06] MEDS ORDERED: SUCCINYLCHOLINE CHLORIDE 100 MG/5 ML SYR IV ONE (09:36)
[2019-11-06] MEDS ORDERED: MIDAZOLAM 2 MG/2 ML VIAL ONE (09:36)
[2019-11-06] MEDS ORDERED: PROPOFOL 10 MG/ML 20 ML VIAL IV ONE (09:36)
[2019-11-06] MEDS ORDERED: GLYCOPYRROLATE 0.2 MG/ML 2 ML VIAL ONE (09:36)
[2019-11-06] MEDS ORDERED: IV FLUID CONTINUATION 1,000 ML IV ONE (09:41)
[2019-11-06] MEDS ORDERED: SODIUM CHLORIDE 0.9% 100 ML with GENTAMICIN 160 MG IV ONE ×2 (09:57)
[2019-11-06] MEDS ORDERED: IOPAMIDOL-300 50ML BTL MISCELLANE ONE (10:01)
--- NOTE | 2019-11-06 10:41 | P.OP ---
Date of Procedure: 11/06/19 Preoperative Diagnosis: left ureteral calculi Postoperative Diagnosis: same Procedure(s) Performed: Cystoscopy, left ureteroscopy, holmium laser lithotripsy and stent placement Implants: 4.5 Fr X 24 cm stent Anesthesia: JENNIFER Surgeon: Darin Ellison Estimated Blood Loss (ml): 1 Pathology: none sent (left ureteral calculi) Condition: stable Disposition: PACU Indications for Procedure: Ms. España is a 33-year-old female with history of 4 mm left proximal stone. She was admitted to the hospital in November 04, she continued to have left flank pain. I discussed with her given her continued pain I discussed the option of left-sided stent placement with a possible ureteroscopy, with holmium laser lithotripsy. Discussed with her the risk which includes but not limited to bleeding, infection, injury to the ureter. I also discussed with her if there is narrowing of the ureter we may not be able to perform ureteroscopy at this time and we'll proceed with stent placement. She understood all the risk and agreed to proceed with surgery. Operative Findings: Stone in renal pelvis narrowing and friable UPJ small false passage noted in the proxima ureter on pullback ureteroscopy Description of Procedure: She was brought to the operating room, general anesthesia was induced. She was prepped and draped in sterile fashion placed in a dorsal lithotomy is addition. Cystoscope fitted with a 22 sheath was inserted per urethra cystoscopy was performed showed no abnormality within the bladder. Attention was then carried to the left ureteral orifice which was intubated with a 5-Lao open-ended catheter. Retrograde Polygram was performed which showed a filling defect along the proximal ureter. At this time a sensor wire was advanced through the catheter and the catheter was removed with the wire in place. Next an 11 x 13- Lao access sheath was passed over the wire into the proximal ureter. flexibile ureteroscope was inserted through the access sheath of note patient UPJ was narrowed and tissue was friable. The scope was then advanced through the UPJ and stone was visualized. Using the holmium laser stone was dusted into smaller fragments. repeat renoscopy was performed and showed no large fragements Pullback ureteroscopy was performed which showed a small false passage in the proximal ureter and no reteral stone were visualized . Next a 6- Lao by 26 cm stent was passed over the wire. The proximal curl was visualized on fluoroscopy and the distal curl was visualized using the cystoscope. The bladder was emptied at the end of case. The patient tolerated procedure well was taken to PACU in stable condition
--- NOTE | 2019-11-06 10:42 | P.DS ---
Providers Date of admission: 11/05/19 05:09 Attending physician: Darin Ellison MD Primary care physician: Dave Ireland [facility] Course: 33 yo female that was admitted to the hospital on 11/04 with left sided proximal stone. Patient had intractable pain during her hospital admission. Given her pain, ureteroscopy with stent placement was discussed with her. She was taken to the OR on 11/05, please see op note dated 11/05 for surgery details. She was discharged home following her surgery, she will f/u in four weeks for stent removal Patient Condition at Discharge: Stable Plan - Discharge Summary Discharge Rx Participant: Yes New Discharge Prescriptions: New Oxybutynin Chloride [Ditropan] 5 mg PO TID PRN #20 tab PRN Reason: Spasms Ondansetron [Zofran] 4 mg PO Q8HR PRN #20 tab PRN Reason: Nausea No Action Metoprolol Succinate (ER) [Toprol Xl] 25 mg PO DAILY #30 tab Cholecalciferol [Vitamin D3 (25 Mcg = 1000 Iu)] 1,000 unit PO DAILY Omeprazole 20 mg PO DAILY Multivitamins, Thera [Multivitamin (formulary)] 1 tab PO DAILY Lisinopril 20 mg PO DAILY Ferrous Sulfate [Feosol] 325 mg PO DAILY Ascorbic Acid [Vitamin C] 1,000 mg PO DAILY Discharge Medication List Metoprolol Succinate (ER) [Toprol Xl] 25 mg PO DAILY #30 tab 04/28/18 [Rx] Ascorbic Acid [Vitamin C] 1,000 mg PO DAILY 11/05/19 [History] Cholecalciferol [Vitamin D3 (25 Mcg = 1000 Iu)] 1,000 unit PO DAILY 11/05/19 [History] Ferrous Sulfate [Feosol] 325 mg PO DAILY 11/05/19 [History] Lisinopril 20 mg PO DAILY 11/05/19 [History] Multivitamins, Thera [Multivitamin (formulary)] 1 tab PO DAILY 11/05/19 [History] Omeprazole 20 mg PO DAILY 11/05/19 [History] Ondansetron [Zofran] 4 mg PO Q8HR PRN #20 tab 11/06/19 [Rx] Oxybutynin Chloride [Ditropan] 5 mg PO TID PRN #20 tab 11/06/19 [Rx] Follow up Appointment(s)/Referral(s): Darin Ellison MD [STAFF PHYSICIAN] - 1 Week Dave Ireland MD [Primary Care Provider] - 1-2 days Activity/Diet/Wound Care/Special Instructions: You may see some blood in the urine Drink plenty of fluid You can use the ditropan for bladder spasms Follow up in one week for stent removal
--- NOTE | 2019-11-06 11:20 | FL ---
EXAMINATION TYPE: FL urography retrograde DATE OF EXAM: 11/06/2019 COMPARISON: NONE HISTORY: Cystoscopy for a left renal calculus/lithotripsy. Fluoroscopic documentation. TECHNIQUE: Fluoroscopy. FINDINGS: Fluoroscopic guidance was provided during procedure performed by Dr. Ellison. A total of 4 0 seconds of fluoroscopic time was utilized during the procedure and 2 spot images was acquired demon strating ureteral stent placement. IMPRESSION: As Above.
[2019-11-06] MEDS: SODIUM CHLORIDE 0.9% 1,000 ML IV SCH (14:33)
[2019-11-06 15:58] VITALS: BP 129/80; PULSE 50; RESP 17; TEMP 97.9
== END 2019-11-06 17:10 | disposition home or self-care (01) | DRG 661 ==
LOC: EC 02:28 → 4SSUR 05:09
PROVIDERS: ADMIT Urology; ATTEND Urology
PROC: 0TC78ZZ Extirpation of Matter from Left Ureter, Via Natural or Artificial Opening Endoscopic (ICD-10-PCS; principal; 2019-11-06 09:00)
PROC: 0TJB8ZZ Inspection of Bladder, Via Natural or Artificial Opening Endoscopic (ICD-10-PCS; principal; 2019-11-06 09:00)
PROC: 0T778DZ Dilation of Left Ureter with Intraluminal Device, Via Natural or Artificial Opening Endoscopic (ICD-10-PCS; principal; 2019-11-06 09:00)
DX: N13.2 Hydronephrosis with renal and ureteral calculous obstruction (principal); F40.240 Claustrophobia; Z11.59 Encounter for screening for other viral diseases; Z79.899 Other long term (current) drug therapy; Z98.84 Bariatric surgery status; Z86.718 Personal history of other venous thrombosis and embolism; Z88.5 Allergy status to narcotic agent; Z88.0 Allergy status to penicillin; Z88.8 Allergy status to other drugs, medicaments and biological substances; Z90.49 Acquired absence of other specified parts of digestive tract; Z98.51 Tubal ligation status; Z82.49 Family history of ischemic heart disease and other diseases of the circulatory system
CPT/HCPCS: 36415; 74018; 74176; 74420; 80053; 81001; 81025; 82150; 83605; 83690; 85025; 85610; 85730; 87635; 96361; 96374; 96375; 99285

== ENCOUNTER → 2019-12-08 | Outpatient (CLI) | payer OTHER ==
--- NOTE | 2019-12-09 07:54 | US ---
EXAMINATION TYPE: US kidneys/renal and bladder DATE OF EXAM: 12/08/2019 COMPARISON: CT 11/05/2019 CLINICAL HISTORY: N20.0 CALCULUS OF KIDNEY. History of stone and stent 1 month ago. Patient just had gastric bypass and cannot drink large amount of water to fill bladder EXAM MEASUREMENTS: Right Kidney: 10.2 x 5.1 x 4.9 cm Left Kidney: 9.8 x 5.1 x 4.8 cm Right Kidney: No hydronephrosis. Echogenic foci measuring 0.3 cm visualized upper pole Left Kidney: No hydronephrosis. Echogenic foci with shadowing measuring 0.6cm lower pole Bladder: Not distended, wnl as visualized Bilateral Jets seen: No, bladder not distended There is no evidence for hydronephrosis at this point in time. No masses are identified. IMPRESSION: Nonobstructing nephrolithiasis.
== END | disposition home or self-care (01) ==
LOC: RADUSWWP 15:37
PROVIDERS: ATTEND Urology
DX: N20.0 Calculus of kidney (principal)
CPT/HCPCS: 76770

== ENCOUNTER → 2020-01-24 | Outpatient (CLI) | payer OTHER ==
--- NOTE | 2020-01-24 12:54 | XR ---
EXAMINATION TYPE: XR KUB DATE OF EXAM: 01/24/2020 12:45 PM CLINICAL HISTORY: Patient passed Kidney stone today. Kidney stones per order. TECHNIQUE: Two supine KUB images of the abdomen are obtained. COMPARISON: Abdominal x-ray and CT November 05, 2019. FINDINGS: Few small to tiny right renal calculi on CT less well seen on plain film. There is suspecte d 3 mm calculus mid to lower pole level left kidney not clearly seen on CT just medial to surgical ghosh tures and clips. More prominent sutures and clips in the epigastric region redemonstrated. Suspect 2 new tiny calculi in the bladder with punctate densities overlying the lower sacrum and coccyx. Adjace nt left pelvic phleboliths redemonstrated. Cholecystectomy clips redemonstrated. Osseous structures are intact. IMPRESSION: Suspect interval passage of tiny or fragmented calculi into the bladder. Possible new tin y 2 to 3 mm mid to lower pole left renal calculus.
== END | disposition home or self-care (01) ==
LOC: RADXRMAIN 12:27
PROVIDERS: ATTEND Urology
DX: N20.1 Calculus of ureter (principal)
CPT/HCPCS: 74018

== ENCOUNTER → 2020-02-28 | Outpatient (CLI) | payer OTHER | END | disposition home or self-care (01) | LOC: LABWHC1 13:12 | PROVIDERS: ATTEND Family Medicine | DX: Z20.828 Contact with and (suspected) exposure to other viral communicable diseases (principal) | CPT/HCPCS: U0003; C9803 ==

== ENCOUNTER → 2020-05-31 | Outpatient (CLI) | payer OTHER | END | disposition home or self-care (01) | LOC: LABWHC1 16:00 | PROVIDERS: ATTEND Family Medicine | DX: R50.9 Fever, unspecified (principal); R05 Cough | CPT/HCPCS: 87635; C9803 ==

== ENCOUNTER → 2021-01-31 | Outpatient (CLI) | payer OTHER ==
--- NOTE | 2021-02-01 09:01 | XR ---
EXAMINATION TYPE: XR lumbar spine 2 or 3V, XR sacrum coccyx 3 views DATE OF EXAM: 01/31/2021 Comparison: 12/27/2015 Clinical History: 35-year-old female M54.5 Findings: Lumbar spine: 5 lumbar type vertebral bodies. Cholecystectomy clips. Stable lines in the left side of the abdomen f rom prior bowel surgery. Vertebral body heights are preserved and alignment is maintained. Mild facet arthropathy lower lumbar spine. Disc interspaces are relatively preserved. Sacrum and coccyx: SI joints are symmetric and intact. Smooth delineation to the arcuate lines of the sacrum. There is f ocal anterior angulation and anterior displacement of up to 8 mm at the distal coccygeal segment. Impression: 1. Lumbar spine: No vertebral compression collapse or malalignment. Some facet arthropathy lower lumb ar spine. 2. Sacrum and coccyx: Focal anterior angulation and 8 mm of anterior displacement at the distal coccy geal segment. Findings suggest age indeterminate tailbone fracture. Clinically correlate.
== END | disposition home or self-care (01) ==
LOC: RADXRMAIN 16:04
PROVIDERS: ATTEND Internal Medicine
DX: M12.88 Other specific arthropathies, not elsewhere classified, other specified site (principal)
CPT/HCPCS: 72100; 72220

== ENCOUNTER → 2021-12-20 | Outpatient (CLI) | payer BC ==
--- NOTE | 2021-12-20 13:32 | US ---
EXAMINATION TYPE: US abdomen complete DATE OF EXAM: 12/20/2021 COMPARISON: CT abdomen and pelvis November 05, 2019 CLINICAL HISTORY: R10.84 GENERALIZED ABDOMINAL PAIN. Abdomen pain and heartburn EXAM MEASUREMENTS: Liver Length: 12.7 cm CBD: 0.8 cm Spleen: 8.1 cm Right Kidney: 10.8 x 4.4 x 5.2 cm Left Kidney: 9.8 x 4.5 x 4.4 cm Pancreas: wnl Liver: 3.0 x 4.1 x 4.3cm isoechoic area left lobe, 1.0cm hyperechoic area right lobe Gallbladder: surgically absent Evidence for sonographic Mcqueen's sign: no CBD: wnl for post cholecystectomy Spleen: visualized portions wnl, limited by overlying bowel gas Right Kidney: wnl Left Kidney: visualized portions wnl, superior pole limited by overlying bowel gas Upper IVC: wnl Abd Aorta: wnl The visualized liver is slightly heterogeneously hyperechoic. No surrounding ascites. Evaluation for focal masses suboptimal due to the heterogeneity. Technologist flores a 3.0 cm isoechoic area in the h epatic dome and smaller 1.0 cm round hyperechoic area. The latter is too small to further characteriz e. The former could reflect focal solid mass or lesion. 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 Lesion grossly stable in size. The intrahepatic portion of the IVC and proximal, mid, and dis te abdominal aorta are within normal limits. Gallbladder is surgically absent. Common bile duct is unremarkable. The visualized portions of the pancreas are homogenous. The spleen is unremarkable. Kidneys are symmetric and free of hydronephrosis. No renal lesions are seen. IMPRESSION: No acute findings are evident.
== END | disposition home or self-care (01) ==
LOC: RADUSWWP 12:29
PROVIDERS: ATTEND Internal Medicine
DX: R10.84 Generalized abdominal pain (principal)
CPT/HCPCS: 76700

== ENCOUNTER → 2022-10-09 | Day surgery (SDC) | payer BC, OTHER ==
[2022-10-08 09:51] VITALS: BMI 21.4
[~2022-10-09] MED LIST: IV FLUID CONTINUATION 500 ML IV ONE; SODIUM CHLORIDE 0.9% 1,000 ML IV SCH
[2022-10-09 13:25] VITALS: BP 139/80; PULSE 71; RESP 18; TEMP 97.8
--- NOTE | 2022-10-09 15:47 | P.EPPROC ---
- EP Procedure Note Electrophysiology Procedure Note: Diagnosis Recurrent syncope Twelve-lead EKG shows sinus mechanism normal MT narrow QRS normal ST segments normal QT interval Tilt table test per protocol Baseline blood pressure 122/79 mmHg pulse rate in the 50s Patient was tilted upright at an angle of 70 per protocol No significant change in blood pressure Increase in heart rate from the 50s to 70s over the first 10 minutes Subsequently heart rate further increased to about 90 beats a minute When she was the supine heart rate was 63 beats her blood pressure 109/68 mmHg The patient complained of a racing heart and dizziness upon standing She says she felt flushed and hot as if her heart was racing At that time her heart rates ranged from 70-96 beats a minute sinus tachycardia No arrhythmias Impression Normal twelve-lead EKG No evidence for neurocardiogenic syncope Possible orthostatic intolerance
== END ==
LOC: CATHEP 12:57
PROVIDERS: ATTEND Internal Medicine Clinical Cardiac Electrophysiology
DX: I73.9 Peripheral vascular disease, unspecified (principal); Z82.49 Family history of ischemic heart disease and other diseases of the circulatory system; Z88.5 Allergy status to narcotic agent; Z88.2 Allergy status to sulfonamides; Z79.899 Other long term (current) drug therapy
CPT/HCPCS: 81025; 93660

== ENCOUNTER → 2023-04-30 | Outpatient (CLI) | payer OTHER ==
--- NOTE | 2023-05-01 11:51 | MR ---
EXAMINATION TYPE: MR wrist LT wo con DATE OF EXAM: 04/30/2023 COMPARISON: No radiographic correlation available HISTORY: 37-year-old female S60.912A SUPERFICIAL INJURY OF LEFT WRIST, Left wrist pain, S/P injury. TECHNIQUE: Multiplanar, multisequence images of the left wrist were obtained without IV contrast. FINDINGS: There may be slight soft tissue edema along the ulnar aspect of the first CMC joint with an associate d 3 mm ganglion cyst. Small effusion within a radial volar recess of the wrist joint. There is some soft tissue edema along the dorsal carpus that could represent some capsular sprain. No acute or healing fracture is seen. The radiocarpal and distal radioulnar joints appear intact. The TFC is intact. The scapholunate and lunotriquetral ligaments appear intact. There is mild dorsal soft tissue swelling at the level of the carpus and mild tenosynovial fluid with in the fourth dorsal extensor tendon compartment. Otherwise, the dorsal extensor and volar flexor tendons appear satisfactory. There is thickening of the median nerve at the level of the distal wrist crease up to 19.7 sq mm.. IMPRESSION: 1. There is mild soft tissue edema along the ulnar aspect of the first CMC joint that could represent a mild capsular sprain with an associated 3 mm ganglion cyst. 2. Some additional mild soft tissue swelling overlying the dorsal carpal bones could represent some s oft tissue contusion or an additional mild sprain. 3. Associated mild tenosynovitis of the overlying fourth dorsal extensor tendon compartment. 4. Thickening of the median nerve at nearly 20 sq mm may be seen with median neuropathy or carpal felicity coral syndrome. Correlate with symptoms. 5. No acute or healing fracture or other specific abnormal abnormality seen.
== END | disposition home or self-care (01) ==
LOC: RADMRIMAIN 16:15
PROVIDERS: ATTEND Orthopaedic Surgery
DX: S60.912A Unspecified superficial injury of left wrist, initial encounter (principal); M79.89 Other specified soft tissue disorders; M65.832 Other synovitis and tenosynovitis, left forearm; G98.8 Other disorders of nervous system; X58.XXXA Exposure to other specified factors, initial encounter